=== PATIENT | male | born 1945 | race Caucasian/White ===

== ENCOUNTER 2024-05-11 07:59 | Inpatient (IN) | payer MEDICARE, OTHER, SELFPAY ==
[2024-05-11] VITALS (13 sets, daily range): BP systolic 95–135; BP diastolic 40–56; PULSE 75–100; RESP 11–19; TEMP 36.2–36.9; O2SAT 94–99; BMI 23.5
--- NOTE | 2024-05-11 08:25 | DI.RAD.S_ITS ---
PROCEDURE: XR CHEST 1V INDICATIONS: chest pain TECHNIQUE: One view of the chest was acquired. COMPARISON: [facility], , CHEST 1 VIEW, 05/10/2015, 20:03. FINDINGS: Surgical changes and devices: None. Lungs and pleura: Lungs are clear. No pleural effusions or pneumothorax. Mediastinum: Mediastinal contours appear normal. Heart size is normal. Bones and chest wall: No suspicious bony lesions. Overlying soft tissues appear unremarkable. IMPRESSION: No acute cardiopulmonary abnormality is seen. Dictated by: Jose Castle M.D. on 05/11/2024 at 8:59 Approved by: Jose Castle M.D. on 05/11/2024 at 8:59
--- NOTE | 2024-05-11 08:47 | ED_ITS ---
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 He notes that overnight he threw up what looks like blood. He brings in his sample it appears to be dark brown and watery. Patient states that happened 4 or 5 times in quick succession around 530 this morning and no additional. Patient states after he threw up he went to stand up to urinate or try to. Had a syncopal episode falling between the toilet in the wall. Patient states he thinks he was out for just a short period of time. He was able to scoot himself back. He did hit his head he has a small abrasion. He denies any neck pain. He denies any chest pain or shortness of breath. Has not had any additional syncopal episodes. He notes he has chronic back pain that has been present for several months. He was having nausea earlier and vomiting but states he has not nauseated currently. Patient has not had any fevers or chills. His states he looks unwell today but she states he will look like that on and off over the past 6 months. He is on an aspirin 81 mg daily, he is on maintenance therapy for CML, he is on 2 antihypertensive, statin. He states prior appendectomy, had a prior right colectomy for polyps. No prior cardiac interventions. He has never had any known GI bleeds. Denies any drug allergies. No tobacco, alcohol or recreational drugs. Primary care physician is Dr. Pascal, follows with oncology at [facility]. Related Data Home Medications Medication Instructions Recorded Confirmed multivitamin (Multiple Vitamins 1 tab PO QDAY #0 tabs 08/21/16 05/11/24 tablet) acetaminophen 325 mg tablet 650 mg PO Q6-8H PRN Pain (Scale 09/18/16 05/11/24 Score 4-6) ##0 amlodipine 10 mg tablet 10 mg PO DAILY 05/11/24 05/11/24 levothyroxine 100 mcg tablet 100 mcg PO DAILY 05/11/24 05/11/24 (Synthroid) lisinopril 20 mg tablet 20 mg PO BID 05/11/24 05/11/24 meloxicam 15 mg tablet 15 mg PO DAILY 05/11/24 05/11/24 pravastatin 40 mg tablet 40 mg PO DAILY 05/11/24 05/11/24 sertraline 50 mg tablet 50 mg PO DAILY 05/11/24 05/11/24 Previous Rx's Medication Instructions Recorded ponatinib 15 mg tablet (Iclusig) 15 mg PO DAILY #30 tabs 02/13/17 Allergies Allergy/AdvReac Type Severity Reaction Status Date / Time No Known Drug Allergies Allergy Verified 05/11/24 08:24 Review of Systems Review of Systems ROS Unobtainable: All systems reviewed & are unremarkable except as noted in HPI and below Patient History Social History household members: spouse Smoking Status: Never smoker alcohol intake: current Smoking Status: Never smoker Substance Use Type: does not use Exam Narrative Exam Narrative: GEN: Patient appears in mild distress. HEAD: Patient has a small abrasion and ecchymosis at the right congregational, no raccoon/Menezes sign. NECK: Nontender, painless range of motion, trachea midline Negative Nexus criteria, no midline line tenderness, distracting injury, altered mental status, neuro deficit, recent EtOH. EYES: PERRLA, EOMI ENT: External inspection normal, trachea is midline, Nares are clear, no septal hematoma, no dental or oral injury, airway is normal and with normal occlusion RESP: Chest is nontender and has symmetric movement, no ecchymosis, breath sounds are normal no crackles, wheezes or rales CVS: Heart sounds are normal, no murmur noted, No JVD. ABG/GI: Nontender, soft, nondistended, normal bowel sounds, no distention, no organomegaly, pelvic rock is negative NEURO: Oriented AOx3, neuro is grossly intact, sensation and motor is normal all 4 extremities moving, cranial nerves II through XII are intact, GCS is 15 PSYCH: Normal mood and affect SKIN: Intact, warm and dry, no crepitus and without decubitus BACK: No CVA tenderness, no vertebral tenderness, no step-off's, no crepitus EXT: Atraumatic, hips are nontender, no pedal edema, normal range of motion. No edema bilateral lower extremities. 2+ pulses upper and lower extremities. Initial Vital Signs Initial Vital Signs: Vital Signs Blood Pressure 111/55 L 05/11/24 08:00 Course Orders Ordered: Acetaminophen (Acetaminophen 325 Mg Tablet) 650 mg PO Q6H PRN PRN Reason: Fever/Mild Pain (1-3) Sodium Chloride (Normal Saline 0.9%) 1,000 mls @ 100 mls/hr IV CONT [facility] Last Admin: 05/12/24 06:57 Dose: 100 mls/hr Documented By: BENJAMIN Naloxone HCl (Naloxone 0.4 Mg/Ml Vial) 0.2 mg IV Q2MIN PRN PRN Reason: Opiate Reversal Ondansetron HCl (Ondansetron 4 Mg/2 Ml Inj) 4 mg IV NOW PRN PRN Reason: Nausea And Vomiting Ondansetron HCl (Ondansetron 4 Mg/2 Ml Inj) 4 mg IV Q8HR PRN PRN Reason: Nausea And Vomiting Pantoprazole Sodium (Pantoprazole 40 Mg Vial) 40 mg IV 0600,2100 [facility] Last Admin: 05/12/24 05:19 Dose: 40 mg Documented By: Admin: 05/11/24 20:59 Dose: 40 mg Documented By: TLS Discontinued Medications Aspirin (Aspirin 81 Mg Chew Tab) 324 mg PO NOW ONE Stop: 05/11/24 08:25 Last Admin: 05/11/24 09:26 Dose: Not Given Documented By: RB Bisacodyl (Bisacodyl 10 Mg Supp) 10 mg KY NOW ONE Stop: 05/11/24 15:05 Last Admin: 05/11/24 16:14 Dose: 10 mg Documented By: MM Sodium Chloride (Normal Saline 0.9%) 1,000 mls @ 250 mls/hr IV CONT [facility] Last Admin: 05/11/24 09:54 Dose: 250 mls/hr Documented By: RB Dextrose/Sodium Chloride (Dextrose 5%-0.45% Ns) 1,000 mls @ 100 mls/hr IV CONT [facility] Last Admin: 05/11/24 15:26 Dose: Not Given Documented By: MM Sodium Chloride (Normal Saline 0.9%) 1,000 mls @ 100 mls/hr IV CONT [facility] Last Admin: 05/11/24 14:33 Dose: 100 mls/hr Documented By: TLS Sodium Chloride (Normal Saline 0.9%) 1,000 mls @ 100 mls/hr IV CONT [facility] Last Admin: 05/11/24 16:14 Dose: Not Given Documented By: MM Sodium Chloride (Normal Saline 0.9%) 1,000 mls @ 150 mls/hr IV CONT [facility] Last Admin: 05/12/24 05:17 Dose: 200 mls/hr Documented By: Infusion: 05/12/24 05:17 Dose: Infused Documented By: Infusion: 05/12/24 02:20 Dose: 200 mls/hr Documented By: Admin: 05/11/24 23:44 Dose: 150 mls/hr Documented By: BENJAMIN Lidocaine HCl (Lidocaine 2% (Glydo) 6 Ml Gel) 6 ml TOP NOW ONE Stop: 05/11/24 08:29 Last Admin: 05/11/24 09:07 Dose: 6 ml Documented By: EDUARDO Ondansetron HCl (Ondansetron 4 Mg Odt) 4 mg SL NOW PRN PRN Reason: Nausea And Vomiting Pantoprazole Sodium (Pantoprazole 40 Mg Vial) 80 mg IV NOW ONE Stop: 05/11/24 08:41 Last Admin: 05/11/24 09:53 Dose: 80 mg Documented By: EDUARDO Vital Signs Vital signs: Vital Signs - 8 hr 05/11/24 08:00 05/11/24 08:14 05/11/24 09:00 Temperature 98.4 F Pulse Rate 86 92 H Respiratory Rate 18 19 Blood Pressure 111/55 L 111/55 L 101/55 L Pulse Oximetry 99 98 Oxygen Delivery Method Room Air Room Air 05/11/24 09:30 05/11/24 10:00 05/11/24 10:30 Temperature Pulse Rate 77 79 80 Respiratory Rate 12 11 L Blood Pressure 95/50 L 100/54 L Pulse Oximetry 97 98 99 Oxygen Delivery Method Room Air Room Air 05/11/24 10:59 05/11/24 11:00 05/11/24 11:30 Temperature Pulse Rate 75 77 77 Respiratory Rate 15 13 Blood Pressure 100/54 L 101/55 L 108/54 L Pulse Oximetry 96 98 Oxygen Delivery Method Room Air Room Air Medical Decision Making Lab Data 05/12/24 05:55 05/12/24 05:55 Labs: Lab Results 05/11/24 05/11/24 Range/Units 08:55 09:15 WBC 20.2 H (4.5-11.0) X10^3/uL RBC 3.33 L (4.5-5.9) X10^6/uL Hgb 10.7 L (13.5-17.5) g/dL Hct 30.7 L (41-53) % MCV 92.3 (80-100) fL MCH 32.2 (26-34) PG MCHC 34.9 (30-36) % RDW 13.7 (11.6-14.8) % Plt Count 263 (150-400) X10^3/uL Neut % (Auto) 87.9 H (50-75) % Lymph % (Auto) 3.4 L (25-40) % [place] % (Auto) 8.1 (3-14) % Eos % (Auto) 0.1 L (2-4) % Baso % (Auto) 0.5 (0-2) % Neut # (Auto) 12987 H (9313-4635) /uL Lymph # (Auto) 700 L (2391-6347) /uL [place] # (Auto) 1600 H (0-900) /uL Eos # (Auto) 0 (0-450) /uL Baso # (Auto) 100 (0-100) /uL PT 12.2 (9.4-12.5) SECONDS INR 1.1 (0.9-1.3) APTT 29 (25.1-36.5) SECONDS Sodium 125 L (137-145) mmol/L Potassium 4.9 (3.4-5.1) mmol/L Chloride 95 L (98-107) mmol/L Carbon Dioxide 22 (22-32) mmol/L BUN 51 H (9-20) mg/dL Creatinine 1.46 H (0.66-1.25) mg/dL Estimated GFR 48 L (>60) mL/min BUN/Creatinine Ratio 34.9 H (6-22) Glucose 129 H (80-110) mg/dL Lactate 1.0 (0.7-2.1) mmol/L Calcium 8.4 (8.4-10.2) mg/dL Magnesium 2.0 (1.6-2.3) mg/dL Total Bilirubin 0.6 (0.2-1.3) mg/dL AST 27 (17-59) IU/L ALT 17 (<50) IU/L Alkaline Phosphatase 66 (38-126) U/L Total Creatine Kinase 146 (55-170) U/L Troponin I < 0.012 (0.01-0.034) ng/mL Total Protein 6.2 L (6.3-8.2) g/dL Albumin 3.8 (3.5-5.0) g/dL Globulin 2.4 (1.7-4.1) g/dL Albumin/Globulin Ratio 1.6 (1.0-2.8) Lipase 63 (23-300) U/L Procalcitonin 0.105 (<0.5) ng/mL Urine Color Yellow Urine Appearance Clear Urine pH 5.5 (4.5-8.0) Ur Specific [place] 1.015 (1.000-1.035) Urine Protein Negative (Negative) Urine Glucose (UA) Negative (Negative) g/dL Urine Ketones 1+ H (NEGATIVE) Urine Occult Blood Trace-intact (Negative) Urine Nitrate Negative (Negative) Urine Bilirubin 1+ H (NEGATIVE) Ur Bilirubin Confirm Negative (Negative) Urine Urobilinogen 0.2 (0.2) E.U./dL Ur Leukocyte Esterase Negative (NEGATIVE) Urine RBC None seen (0-5/HPF) Urine WBC None seen (0-5/HPF) Ur Squamous Epith Cells None seen (0-5/HPF) Urine Bacteria None seen (None) Ur Culture Indicated? Cult not indicated Vol Urine Centrifuged 10ml (spun) Blood Type O Positive Antibody Screen Negative ECG Data Attestation: I personally reviewed and interpreted this ECG as follows: Interpretation: Sinus rhythm rate 86 [place] 204 QRS 84 QTC 435. No acute ST changes appreciated. Nonspecific change. [facility] Narrative Medical decision making narrative: 79-year-old male with complaint of no bowel movement, vomiting and inability to urinate. Patient notes he thinks he vomited up some blood it does look very dark brown. He had a syncopal episode thereafter. He is slightly hypotensive. Labs show white count of 20, hemoglobin of 10 patient has priors are from over 4 years ago, patient's platelets are 263. INR is 1.1. Sodium is 125 potassium of 4.9 chloride 95 CO2 of 22, BUN 51 with a creatinine 1.46, glucose is 129, LFTs are negative troponins less than 0.012, lactate is 1, procalcitonin is 0.015, blood cultures are pending. Urinalysis shows 1+ ketones 1+ bilirubin no other signs of infection. Chest x-ray shows no acute change. Head CT no acute intracranial hemorrhage or pathology. CT C-spine no fracture or traumatic subluxation focal C5-6 degenerative change. Also focal degenerative change at C1-C2 anteriorly. CT abdomen pelvis shows volume of stool in the colon is not effective, Villarreal catheter is in place. Right partial colectomy changes can be seen. Diverticulosis without diverticulitis. Patient received gentle fluids, Protonix and Zofran. Villarreal catheter was placed patient had about 350 mL on bladder scan. Spoke with Dr. Luque, general surgery: Plan to keep patient NPO, we will see patient today. Possible scope today versus tomorrow. Dr. Cheng, hospitalist accepts for inpatient. Discharge Plan Departure Patient Disposition: Admitted As Inpatient Clinical Impression: Acute GI bleeding, NAV (acute kidney injury), Hyponatremia Admit Date/Time: 05/11/24 12:45 Admit Provider: Fabian Cheng
--- NOTE | 2024-05-11 09:06 | DI.CT.S_ITS ---
PROCEDURE: CT ABDOMEN PELVIS W CON INDICATIONS: vomiting ? blood, no BM x 2 days, can't urinate, TECHNIQUE: After the administration of intravenous contrast, axial sections acquired from the lung bases to the pubic symphysis. Coronal and sagittal reformats were performed. For radiation dose reduction, the following was used: automated exposure control, adjustment of mA and/or kV according to patient size. COMPARISON: [facility], CT, CT HEAD/BRAIN WO CON, 05/11/2024, 10:12. [facility], CT, CT CERVICAL SPINE WO CON, 05/11/2024, 10:12. FINDINGS: Image quality: Diagnostic. Lower Chest: Dense coronary calcification can be seen. ABDOMEN: Liver: No solid mass. Gallbladder: No radiopaque gallstones or wall thickening. Biliary ducts: No biliary dilation. Pancreas: No ductal dilation. Spleen: Size is within normal limits. Adrenal Glands: No adrenal nodules. Kidneys and Ureters: No hydronephrosis. No solid mass. No complex renal cystic lesion which requires follow up. Stomach and Bowel: Right partial colectomy change can be seen. Distal colonic diverticulosis is seen, without findings of active diverticulitis. The colon is otherwise unremarkable. The volume of stool within the colon is not excessive. No dilated loops of small bowel are seen. The stomach demonstrates no significant abnormality. Peritoneum: No abnormal intraperitoneal fluid. No free air. Ventral Wall: No significant ventral hernia. Abdominal Nodes: No retroperitoneal or mesenteric adenopathy by size criteria. Vessels: Aorta and inferior vena cava are normal in size. Atherosclerotic calcification is noted. PELVIS: Pelvic Organs: Fluoroscopic images were obtained during a procedure and submitted for interpretation following the completion of the procedure. Bladder: No bladder wall thickening, accounting for underdistention. Pelvic Nodes: No enlarged lymph nodes. Miscellaneous: Bilateral fat containing inguinal hernias are seen, left larger than right. Bones: No aggressive osseous abnormality. Mild levoconvex scoliotic curvature is noted. Age-appropriate bony degenerative changes are seen. IMPRESSION: No imaging explanation is found for this patient's presenting symptoms. The volume of stool within the colon is not excessive. A Villarreal catheter is seen in place. Additional findings: Dense coronary artery calcification Diverticulosis, without active diverticulitis Bilateral fat containing inguinal hernias Dictated by: Yobani Gresham M.D. on 05/11/2024 at 9:32 Approved by: Yobani Gresham M.D. on 05/11/2024 at 9:35
[2024-05-11] MEDS: LIDOCAINE 2% (GLYDO) 6 ML GEL TOP (09:07)
--- NOTE | 2024-05-11 09:08 | DI.CT.S_ITS ---
PROCEDURE: CT HEAD/BRAIN WO CON INDICATIONS: syncope, hit head on thinners, TECHNIQUE: Noncontrast 4.5 mm thick angled axial sections acquired from the foramen magnum to the vertex, with coronal and sagittal reformats. For radiation dose reduction, the following was used: automated exposure control, adjustment of mA and/or kV according to patient size. COMPARISON: [facility], CT, CT CERVICAL SPINE WO CON, 05/11/2024, 10:12. [facility], CT, CT ABDOMEN PELVIS W CON, 05/11/2024, 10:12. FINDINGS: Image quality: Diagnostic. CSF spaces: Basal cisterns are patent. No extra-axial fluid collections. The ventricles are symmetric in size and shape. Brain: No intracranial bleeds or masses. There is cerebral volume loss for age, with resultant ventricular and sulcal prominence. There are periventricular and deep white matter chronic small vessel ischemic changes. There is intracranial internal carotid artery atherosclerosis. Skull and face: Calvarium and visualized facial bones appear intact, without suspicious lesions. Sinuses: Visualized sinuses and mastoids are clear. IMPRESSION: No acute intracranial hemorrhage is seen. No acute intracranial pathology. Dictated by: Yobani Gresham M.D. on 05/11/2024 at 9:25 Approved by: Yobani Gresham M.D. on 05/11/2024 at 9:26
--- NOTE | 2024-05-11 09:08 | DI.CT.S_ITS ---
PROCEDURE: CT CERVICAL SPINE WO CON INDICATIONS: syncope, hit head on thinners, TECHNIQUE: Noncontrast 3 mm thick sections acquired from the skull base to the T4 level. Sagittal and coronal reformats were then constructed. For radiation dose reduction, the following was used: automated exposure control, adjustment of mA and/or kV according to patient size. COMPARISON: [facility], CT, CT ABDOMEN PELVIS W CON, 05/11/2024, 10:12. [facility], CT, CT HEAD/BRAIN WO CON, 05/11/2024, 10:12. FINDINGS: Image quality: Diagnostic Bones: No fractures or dislocations. Visualized superior ribs are intact. Focal degenerative change is seen involving the C1-C2 interface anteriorly. There is at least moderate disc space narrowing seen at the C5-C6 level. Milder degenerative changes are seen elsewhere. Soft tissues: Prevertebral soft tissues are normal in thickness. No paravertebral hematomas. No apical pneumothoraces. Atherosclerotic calcification is noted. IMPRESSION: No displaced fracture or traumatic subluxation. Focal C5-C6 degenerative change. Dictated by: Yobani Gresham M.D. on 05/11/2024 at 9:26 Approved by: Yobani Gresham M.D. on 05/11/2024 at 9:27
[2024-05-11 09:09] LABS: Add Manual Diff / Slide Review NO; Basophils Absolute Auto 100 /uL (0-100); Basophils Percent Auto 0.5 % (0-2); Eosinophils Absolute Auto 0 /uL (0-450); Eosinophils Percent Auto 0.1 % (2-4); Hematocrit 30.7 % (41-53); Hemoglobin 10.7 g/dL (13.5-17.5); Lymphocytes Absolute Auto 700 /uL (1100-4500); Lymphocytes Percent Auto 3.4 % (25-40); Mean Corpuscular HGB Conc 34.9 % (30-36); Mean Corpuscular Hemoglobin 32.2 PG (26-34); Mean Corpuscular Volume 92.3 fL (80-100); Monocytes Absolute Auto 1600 /uL (0-900); Monocytes Percent Auto 8.1 % (3-14); Neutrophils Absolute Auto 17700 /uL (1500-7000); Neutrophils Percent Auto 87.9 % (50-75); Platelet Count 263 X10^3/uL (150-400); Red Blood Cell Count 3.33 X10^6/uL (4.5-5.9); Red Cell Distribution Width 13.7 % (11.6-14.8); White Blood Cell Count 20.2 X10^3/uL (4.5-11.0)
[2024-05-11 09:17] LABS: INR 1.1 (0.9-1.3); Prothrombin Time 12.2 SECONDS (9.4-12.5)
[2024-05-11 09:20] LABS: PTT Partial Thromboplastin Tim 29 SECONDS (25.1-36.5)
[2024-05-11 09:22] LABS: Alanine Aminotransferase 17 IU/L (<50); Albumin 3.8 g/dL (3.5-5.0); Albumin Globulin Ratio 1.6 (1.0-2.8); Alkaline Phosphatase 66 U/L (38-126); Aspartate Aminotransferase 27 IU/L (17-59); BUN Creatinine Ratio 34.9 (6-22); Bilirubin Total 0.6 mg/dL (0.2-1.3); Blood Urea Nitrogen 51 mg/dL (9-20); Calcium 8.4 mg/dL (8.4-10.2); Carbon Dioxide 22 mmol/L (22-32); Chloride 95 mmol/L (98-107); Creatine Kinase 146 U/L (55-170); Estimated Glomerular Filt Rate 48 mL/min (>60); Globulin 2.4 g/dL (1.7-4.1); Glucose 129 mg/dL (80-110); HEMOLYSIS < 15 (0-50); Lipase 63 U/L (23-300); Potassium 4.9 mmol/L (3.4-5.1); Sodium 125 mmol/L (137-145); Total Protein 6.2 g/dL (6.3-8.2)
[2024-05-11 09:33] LABS: Troponin I < 0.012 ng/mL (0.01-0.034)
[2024-05-11 09:34] LABS: Appearance Urine UA CLEAR; Bilirubin Urine UA 1+ (NEGATIVE); Color Urine UA YELLOW; Glucose Urine UA NEGATIVE (Negative); Ketones Urine UA 1+ (NEGATIVE); Leukocyte Esterase Urine UA NEGATIVE (NEGATIVE); Nitrite Urine UA NEGATIVE (Negative); Occult Blood Urine UA TRACE-INTACT (Negative); Protein Urine UA NEGATIVE (Negative); Specific Gravity Urine UA 1.015 (1.000-1.035); Urobilinogen Urine UA 0.2 E.U./dL (0.2); pH Urine UA 5.5 (4.5-8.0)
[2024-05-11 09:36] LABS: Ictotest Urine Negative (Negative); Urine Volume 10mL (spun)
[2024-05-11 09:38] LABS: Bacteria Urine None Seen; Culture Indicated Urine Cult Not Indicated; RBC Urine None Seen (0-5/HPF); Squamous Epithelial Cell Urine None Seen (0-5/HPF); WBC Urine None Seen (0-5/HPF)
[2024-05-11] MEDS: PANTOPRAZOLE 40 MG VIAL 80 MG IV (09:53)
[2024-05-11] MEDS: SODIUM CHLORIDE 0.9% 1,000 ML 250 ML IV (09:54)
[2024-05-11 10:31] LABS: Procalcitonin 0.105 ng/mL (<0.5)
--- NOTE | 2024-05-11 13:37 | P.HP_ITS ---
History of Present Illness History of Present Illness Date Patient Seen: 05/11/24 Time Patient Seen: 04:00 Chief complaint: Blood in Vomit Narrative: The patient is an 79-year-old male with a history of CML, hypertension, and right colectomy for a polyp. He was having abdominal pain for about a day and had a very large volume vomiting episodes this morning with dark green and possibly coffee-ground emesis. He has chronic constipation with no BM for about 2 days. He denies any abdominal distention. He did have urinary retention and required a Villarreal in the ED. He has a history of nocturia but no history of retention. He only had 300 mL out when the Villarreal was placed. He notes a long history of chronic constipation with a lot of obsessing for about 6 months. He has tried a variety of remedies but does not have a routine. He is also lost about 25 lb but it sounds like he was eating less in the way of avoiding constipation. He also has chronic lower back pain without any clear cause and has not had imaging that I can tell. In the emergency department he did have a CT scan which was fairly unremarkable. He takes 2 aspirin a day but denies any nonsteroidals. He has no history of POD or GI bleeds. He is and lives with his . Extended family is currently living with them. It sounds as though he spends majority of his time concentrating on the problem of constipation and possible ways to fix it. He was recently started on Zoloft by his primary care doctor. Surgery was consulted from the emergency department for endoscopy. He was started on Protonix. [facility] Social History household members: spouse Smoking Status: Never smoker alcohol intake: current Meds Home Medications and Allergies Home Medications Medication Instructions Recorded Confirmed Type multivitamin (Multiple Vitamins 1 tab PO QDAY #0 tabs 08/21/16 05/11/24 History tablet) acetaminophen 325 mg tablet 650 mg PO Q6-8H PRN Pain (Scale 09/18/16 05/11/24 History Score 4-6) ##0 ponatinib 15 mg tablet (Iclusig) 15 mg PO DAILY #30 tabs 02/13/17 05/11/24 Rx amlodipine 10 mg tablet 10 mg PO DAILY 05/11/24 05/11/24 History levothyroxine 100 mcg tablet 100 mcg PO DAILY 05/11/24 05/11/24 History (Synthroid) lisinopril 20 mg tablet 20 mg PO BID 05/11/24 05/11/24 History meloxicam 15 mg tablet 15 mg PO DAILY 05/11/24 05/11/24 History pravastatin 40 mg tablet 40 mg PO DAILY 05/11/24 05/11/24 History sertraline 50 mg tablet 50 mg PO DAILY 05/11/24 05/11/24 History Allergies Allergy/AdvReac Type Severity Reaction Status Date / Time No Known Drug Allergies Allergy Verified 05/11/24 08:24 Review of Systems Review of Systems Narrative: All else reviewed and otherwise unremarkable except as noted in the history and physical. Exam Vital Signs (past 8 hours): - 05/11/24 08:00 05/11/24 08:14 05/11/24 09:00 Temperature 98.4 F Pulse Rate 86 92 H Respiratory Rate 18 19 Blood Pressure 111/55 L 111/55 L 101/55 L Pulse Oximetry 99 98 Oxygen Delivery Method Room Air Room Air 05/11/24 09:30 05/11/24 10:00 05/11/24 10:30 Temperature Pulse Rate 77 79 80 Respiratory Rate 12 11 L Blood Pressure 95/50 L 100/54 L Pulse Oximetry 97 98 99 Oxygen Delivery Method Room Air Room Air 05/11/24 10:59 05/11/24 11:00 05/11/24 11:30 Temperature Pulse Rate 75 77 77 Respiratory Rate 15 13 Blood Pressure 100/54 L 101/55 L 108/54 L Pulse Oximetry 96 98 Oxygen Delivery Method Room Air Room Air 05/11/24 13:00 Temperature Pulse Rate 81 Respiratory Rate Blood Pressure 107/56 L Pulse Oximetry 99 Oxygen Delivery Method Room Air Oxygen Delivery Method Room Air Narrative Exam Narrative: NAD, alert and oriented, fluent speech, calm. Normocephalic skull, EOMI, anicteric sclera, symmetric pupils. Oropharynx unremarkable, no droop. Neck supple, midline trachea, no adenopathy. Lungs clear, normal rate and effort. Heart regular, no murmur gallop or rub. Abdomen is soft, non distended and non tender. Extremities are free of edema. Skin is free of rash or lesions. Joints are not swollen or deformed. Judgment appears to be abnormal. Objective Labs 05/11/24 08:55 05/11/24 08:55 Labs: Laboratory Results - last 24 hr 05/11/24 05/11/24 08:55 09:15 WBC 20.2 H RBC 3.33 L Hgb 10.7 L Hct 30.7 L MCV 92.3 MCH 32.2 MCHC 34.9 RDW 13.7 Plt Count 263 Neut % (Auto) 87.9 H Lymph % (Auto) 3.4 L [place] % (Auto) 8.1 Eos % (Auto) 0.1 L Baso % (Auto) 0.5 Neut # (Auto) 80721 H Lymph # (Auto) 700 L [place] # (Auto) 1600 H Eos # (Auto) 0 Baso # (Auto) 100 PT 12.2 INR 1.1 APTT 29 Sodium 125 L Potassium 4.9 Chloride 95 L Carbon Dioxide 22 BUN 51 H Creatinine 1.46 H Estimated GFR 48 L BUN/Creatinine Ratio 34.9 H Glucose 129 H Lactate 1.0 Calcium 8.4 Magnesium 2.0 Total Bilirubin 0.6 AST 27 ALT 17 Alkaline Phosphatase 66 Total Creatine Kinase 146 Troponin I < 0.012 Total Protein 6.2 L Albumin 3.8 Globulin 2.4 Albumin/Globulin Ratio 1.6 Lipase 63 Procalcitonin 0.105 Urine Color Yellow Urine Appearance Clear Urine pH 5.5 Ur Specific [place] 1.015 Urine Protein Negative Urine Glucose (UA) Negative Urine Ketones 1+ H Urine Occult Blood Trace-intact Urine Nitrate Negative Urine Bilirubin 1+ H Ur Bilirubin Confirm Negative Urine Urobilinogen 0.2 Ur Leukocyte Esterase Negative Urine RBC None seen Urine WBC None seen Ur Squamous Epith Cells None seen Urine Bacteria None seen Ur Culture Indicated? Cult not indicated Vol Urine Centrifuged 10ml (spun) Blood Type O Positive Antibody Screen Negative Assessment & Plan Assessment & Plan narrative: 1. Possible hematemesis, present on admission and active. 2. Acute on chronic constipation, present on admission and active. 3. Hypovolemic hyponatremia, present on admission and active. 4. CML, present on admission and stable. 5. Chronic lower back pain, present on admission and stable. 6. 25 lb weight loss over the last year, not clearly unintentional. Stable. 7. Hypertension, present on admission and stable. Plan: -Dulcolax suppository -saline repletion and trend sodium. We will try to correct 5 points every 24 hours. This is likely nutritional deficiency. -endoscopy tomorrow, continue Protonix IV q.12 hours. -monitor blood pressure, resume usual blood pressure medications. -resume Synthroid. He was admitted to observation, estimated 1 midnight necessity for hospital care. He lives in [place] with his . He is full resuscitation. She was his proxy decision maker. Time Spent With Patient Time with patient: 30 to 49 minutes with 50% spent counseling/coordinating care Quality MIPS - Admit I confirm the patient?s Advance Care Plan is present, Code status is documented, Surrogate decision maker is in patient?s record [If Yes, STOP here]: Yes MIPS - Meds 'Current medications' to include all prescriptions, [id number] products, herbals, cannabis/cannabidiol products, and vitamin/mineral/dietary (nutritional) supplements. I have utilized all available resources to obtain, update, or review the patient?s current medications. [If Yes, STOP here]: Yes
[2024-05-11] MEDS: SODIUM CHLORIDE 0.9% 1,000 ML 100 ML IV (14:33)
--- NOTE | 2024-05-11 15:21 | PM.CN ---
History of Present Illness Consult details Date Patient Seen: 05/11/24 Time Patient Seen: 15:21 Chief complaint: Blood in Vomit Narrative: Faheem is an 79-year-old man who presented to the emergency department this morning because syncope and emesis of dark liquid. His brought a sample of it in jar and appears to be bilious liquid. He has also been struggling with constipation for the past 6 months or so. He has not noted obvious selina blood in the stool but he thinks it has been dark. He has had a prior right hemicolectomy for polyps many years ago but stopped having surveillance colonoscopies about 5 years ago because of his age. He has CML in remission and he did see his oncologist on Saturday. His hemoglobin in the ER this morning was 10.7 which is down from a baseline of 14. Meds Home Medications and Allergies Home Medications Medication Instructions Recorded Confirmed Type multivitamin (Multiple Vitamins 1 tab PO QDAY #0 tabs 08/21/16 05/11/24 History tablet) acetaminophen 325 mg tablet 650 mg PO Q6-8H PRN Pain (Scale 09/18/16 05/11/24 History Score 4-6) ##0 ponatinib 15 mg tablet (Iclusig) 15 mg PO DAILY #30 tabs 02/13/17 05/11/24 Rx amlodipine 10 mg tablet 10 mg PO DAILY 05/11/24 05/11/24 History levothyroxine 100 mcg tablet 100 mcg PO DAILY 05/11/24 05/11/24 History (Synthroid) lisinopril 20 mg tablet 20 mg PO BID 05/11/24 05/11/24 History meloxicam 15 mg tablet 15 mg PO DAILY 05/11/24 05/11/24 History pravastatin 40 mg tablet 40 mg PO DAILY 05/11/24 05/11/24 History sertraline 50 mg tablet 50 mg PO DAILY 05/11/24 05/11/24 History Allergies Allergy/AdvReac Type Severity Reaction Status Date / Time No Known Drug Allergies Allergy Verified 05/11/24 08:24 Exam Vital Signs (past 8 hours): - 05/11/24 08:00 05/11/24 08:14 05/11/24 09:00 Temperature 98.4 F Pulse Rate 86 92 H Respiratory Rate 18 19 Blood Pressure 111/55 L 111/55 L 101/55 L Pulse Oximetry 99 98 Oxygen Delivery Method Room Air Room Air Oxygen Flow Rate 05/11/24 09:30 05/11/24 10:00 05/11/24 10:30 Temperature Pulse Rate 77 79 80 Respiratory Rate 12 11 L Blood Pressure 95/50 L 100/54 L Pulse Oximetry 97 98 99 Oxygen Delivery Method Room Air Room Air Oxygen Flow Rate 05/11/24 10:59 05/11/24 11:00 05/11/24 11:30 Temperature Pulse Rate 75 77 77 Respiratory Rate 15 13 Blood Pressure 100/54 L 101/55 L 108/54 L Pulse Oximetry 96 98 Oxygen Delivery Method Room Air Room Air Oxygen Flow Rate 05/11/24 13:00 05/11/24 14:00 Temperature 97.1 F L Pulse Rate 81 100 H Respiratory Rate 16 Blood Pressure 107/56 L 135/56 L Pulse Oximetry 99 99 Oxygen Delivery Method Room Air Oxygen Flow Rate 0 Oxygen Delivery Method Room Air Oxygen Flow Rate 0 Const General: No acute distress Resp Effort & Inspection: normal respiratory effort Objective Labs 05/11/24 08:55 05/11/24 08:55 Labs: Laboratory Results - last 24 hr 05/11/24 05/11/24 08:55 09:15 WBC 20.2 H RBC 3.33 L Hgb 10.7 L Hct 30.7 L MCV 92.3 MCH 32.2 MCHC 34.9 RDW 13.7 Plt Count 263 Neut % (Auto) 87.9 H Lymph % (Auto) 3.4 L [place] % (Auto) 8.1 Eos % (Auto) 0.1 L Baso % (Auto) 0.5 Neut # (Auto) 02988 H Lymph # (Auto) 700 L [place] # (Auto) 1600 H Eos # (Auto) 0 Baso # (Auto) 100 PT 12.2 INR 1.1 APTT 29 Sodium 125 L Potassium 4.9 Chloride 95 L Carbon Dioxide 22 BUN 51 H Creatinine 1.46 H Estimated GFR 48 L BUN/Creatinine Ratio 34.9 H Glucose 129 H Lactate 1.0 Calcium 8.4 Magnesium 2.0 Total Bilirubin 0.6 AST 27 ALT 17 Alkaline Phosphatase 66 Total Creatine Kinase 146 Troponin I < 0.012 Total Protein 6.2 L Albumin 3.8 Globulin 2.4 Albumin/Globulin Ratio 1.6 Lipase 63 Procalcitonin 0.105 Urine Color Yellow Urine Appearance Clear Urine pH 5.5 Ur Specific [place] 1.015 Urine Protein Negative Urine Glucose (UA) Negative Urine Ketones 1+ H Urine Occult Blood Trace-intact Urine Nitrate Negative Urine Bilirubin 1+ H Ur Bilirubin Confirm Negative Urine Urobilinogen 0.2 Ur Leukocyte Esterase Negative Urine RBC None seen Urine WBC None seen Ur Squamous Epith Cells None seen Urine Bacteria None seen Ur Culture Indicated? Cult not indicated Vol Urine Centrifuged 10ml (spun) Blood Type O Positive Antibody Screen Negative PFSH Social History household members: spouse Tobacco & Substance Use Smoking Status: Never smoker alcohol intake: current Assessment & Plan Assessment and plan (1) Syncope: Qualifiers: Syncope type: unspecified Qualified Code(s): R55 - Syncope and collapse Status: Acute Plan Recommend esophagogastroduodenoscopy for syncope with decreasing hemoglobin. Plan for endoscopy tomorrow pending OR availability.
[2024-05-11] MEDS: BISACODYL 10 MG SUPP PR (16:14)
[2024-05-11 18:13] LABS: Appearance Urine UA CLEAR; Bilirubin Urine UA NEGATIVE (NEGATIVE); Color Urine UA YELLOW; Glucose Urine UA NEGATIVE (Negative); Ketones Urine UA TRACE (NEGATIVE); Leukocyte Esterase Urine UA NEGATIVE (NEGATIVE); Nitrite Urine UA NEGATIVE (Negative); Occult Blood Urine UA 2+ (Negative); Protein Urine UA TRACE (Negative); Specific Gravity Urine UA <=1.005 (1.000-1.035); Urobilinogen Urine UA 0.2 E.U./dL (0.2); pH Urine UA 5.5 (4.5-8.0)
[2024-05-11 18:28] LABS: Bacteria Urine None Seen; Culture Indicated Urine Cult Not Indicated; RBC Urine 5-10/HPF (0-5/HPF); Squamous Epithelial Cell Urine 0-1 /HPF (0-5/HPF); Urine Volume 10mL (spun); WBC Urine 0-1/HPF (0-5/HPF)
[2024-05-11] MEDS: PANTOPRAZOLE 40 MG VIAL IV (20:59)
[2024-05-11 23:24] LABS: Hematocrit 26.2 % (41-53); Hemoglobin 9.3 g/dL (13.5-17.5)
[2024-05-11] MEDS: SODIUM CHLORIDE 0.9% 1,000 ML 150 ML IV (23:44)
[2024-05-12] VITALS (14 sets, daily range): BP systolic 100–137; BP diastolic 43–64; PULSE 69–88; RESP 14–18; TEMP 35.7–36.7; O2SAT 96–100
--- NOTE | 2024-05-12 00:29 | PC.NURSE ---
Addendum entered by Maddi Millan R.N. 05/12/24 06:59: NS running at 100cc/hr as ordered. Notified MD Cheng of sodium increase (125-135). Patient AxOx4, denies pain or discomfort. Addendum entered by Maddi Millan R.N. 05/12/24 02:20: Patient remains hypotensive (documented VS), patient is alert and denies dizziness. Notified MD Navarro, orders are to increase NS to 200cc/hr until 0700, then decrease back to 100cc/hr. 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 NPO for procedure tomorrow. Patient is hypotensive (documented VS), notified MD Navarro, increased NS to 150cc/hr. Villarreal in place draining clear, yellow urine. Denies pain. Fall precautions in place, oriented to call-light, plan of care ongoing.
[2024-05-12] MEDS: SODIUM CHLORIDE 0.9% 1,000 ML 200 ML IV (05:17)
[2024-05-12] MEDS: PANTOPRAZOLE 40 MG VIAL IV ×2 (05:19→20:39)
[2024-05-12 06:28] LABS: Hematocrit 25.7 % (41-53); Hemoglobin 9.2 g/dL (13.5-17.5)
[2024-05-12 06:41] LABS: BUN Creatinine Ratio 31.7 (6-22); Blood Urea Nitrogen 32 mg/dL (9-20); Calcium 7.8 mg/dL (8.4-10.2); Carbon Dioxide 19 mmol/L (22-32); Chloride 112 mmol/L (98-107); Estimated Glomerular Filt Rate > 60 mL/min (>60); Glucose 91 mg/dL (80-110); HEMOLYSIS < 15 (0-50); Potassium 4.1 mmol/L (3.4-5.1); Sodium 135 mmol/L (137-145)
[2024-05-12] MEDS: SODIUM CHLORIDE 0.9% 1,000 ML 100 ML IV ×2 (06:57→23:44)
--- NOTE | 2024-05-12 07:38 | P.PN_ITS ---
Subjective Subjective Interval history: Hungry, no abdomen pain. Large BM. Exam Vital Signs (past 8 hours): - 05/12/24 00:03 05/12/24 02:18 05/12/24 03:05 Pulse Rate 79 88 84 Respiratory Rate 17 Blood Pressure 108/46 L 107/45 L 122/56 L Pulse Oximetry 96 97 Oxygen Flow Rate 0 0 Oxygen Delivery Method Room Air Oxygen Flow Rate 0 Narrative Exam Narrative: NAD, alert and oriented. Fluent speech. Lungs are clear, normal rate and effort. Heart is regular, no murmur gallop or rub. Abdomen is soft, non distended. Extremities are free of edema. Objective Labs 05/12/24 05:55 05/12/24 05:55 Labs: Laboratory Results - last 24 hr 05/11/24 05/11/24 05/11/24 08:55 09:15 17:10 WBC 20.2 H RBC 3.33 L Hgb 10.7 L Hct 30.7 L MCV 92.3 MCH 32.2 MCHC 34.9 RDW 13.7 Plt Count 263 Neut % (Auto) 87.9 H Lymph % (Auto) 3.4 L [place] % (Auto) 8.1 Eos % (Auto) 0.1 L Baso % (Auto) 0.5 Neut # (Auto) 84492 H Lymph # (Auto) 700 L [place] # (Auto) 1600 H Eos # (Auto) 0 Baso # (Auto) 100 PT 12.2 INR 1.1 APTT 29 Sodium 125 L Potassium 4.9 Chloride 95 L Carbon Dioxide 22 BUN 51 H Creatinine 1.46 H Estimated GFR 48 L BUN/Creatinine Ratio 34.9 H Glucose 129 H Lactate 1.0 Calcium 8.4 Magnesium 2.0 Total Bilirubin 0.6 AST 27 ALT 17 Alkaline Phosphatase 66 Total Creatine Kinase 146 Troponin I < 0.012 Total Protein 6.2 L Albumin 3.8 Globulin 2.4 Albumin/Globulin Ratio 1.6 Lipase 63 Procalcitonin 0.105 Urine Color Yellow Yellow Urine Appearance Clear Clear Urine pH 5.5 5.5 Ur Specific [place] 1.015 <=1.005 Urine Protein Negative Trace H Urine Glucose (UA) Negative Negative Urine Ketones 1+ H Trace H Urine Occult Blood Trace-intact 2+ H Urine Nitrate Negative Negative Urine Bilirubin 1+ H Negative Ur Bilirubin Confirm Negative Urine Urobilinogen 0.2 0.2 Ur Leukocyte Esterase Negative Negative Urine RBC None seen 5-10/hpf H Urine WBC None seen 0-1/hpf Ur Squamous Epith Cells None seen 0-1 /hpf Urine Bacteria None seen None seen Ur Culture Indicated? Cult not indicated Cult not indicated Vol Urine Centrifuged 10ml (spun) 10ml (spun) Blood Type O Positive Antibody Screen Negative 05/11/24 05/12/24 23:13 05:55 WBC RBC Hgb 9.3 L 9.2 L Hct 26.2 L 25.7 L MCV MCH MCHC RDW Plt Count Neut % (Auto) Lymph % (Auto) [place] % (Auto) Eos % (Auto) Baso % (Auto) Neut # (Auto) Lymph # (Auto) [place] # (Auto) Eos # (Auto) Baso # (Auto) PT INR APTT Sodium 135 L D Potassium 4.1 Chloride 112 H Carbon Dioxide 19 L BUN 32 H Creatinine 1.01 Estimated GFR > 60 BUN/Creatinine Ratio 31.7 H Glucose 91 Lactate Calcium 7.8 L Magnesium Total Bilirubin AST ALT Alkaline Phosphatase Total Creatine Kinase Troponin I Total Protein Albumin Globulin Albumin/Globulin Ratio Lipase Procalcitonin Urine Color Urine Appearance Urine pH Ur Specific [place] Urine Protein Urine Glucose (UA) Urine Ketones Urine Occult Blood Urine Nitrate Urine Bilirubin Ur Bilirubin Confirm Urine Urobilinogen Ur Leukocyte Esterase Urine RBC Urine WBC Ur Squamous Epith Cells Urine Bacteria Ur Culture Indicated? Vol Urine Centrifuged Blood Type Antibody Screen [facility] Social History household members: spouse Smoking Status: Never smoker alcohol intake: current Assessment & Plan Assessment & Plan narrative: 1. Possible hematemesis, present on admission and active. 2. Acute blood loss anemia, present on admission and active. 3. Acute on chronic constipation, present on admission and active. 4. Hypovolemic hyponatremia, present on admission and active. 5. CML, present on admission and stable. 6. Chronic lower back pain, present on admission and stable. 7. 25 lb weight loss over the last year, not clearly unintentional. Stable. 8. Hypertension, present on admission and stable. Plan: -endoscopy todoay, continue Protonix IV q.12 hours. Monitor H/H. -monitor blood pressure, resume usual blood pressure medications. -continue Synthroid. He will require another midnight of hospital care to continue Protonix and monitor hemoglobin. Quality VTE Deep Vein Thrombosis/Pulmonary Embolism Present on Admission: No
[2024-05-12 08:17] LABS: Add Manual Diff / Slide Review NO; Basophils Percent Auto 0.2 % (0-2); Eosinophils Percent Auto 0.9 % (2-4); Lymphocytes Percent Auto 9.4 % (25-40); Neutrophils Absolute Auto 8200 /uL (1500-7000); Neutrophils Percent Auto 77.5 % (50-75); White Blood Cell Count 10.7 X10^3/uL (4.5-11.0)
--- NOTE | 2024-05-12 09:26 | CM.DANOTE ---
Initial DCP Assessment Visit Note Reviewed EMR and team rounds for status updates. Went to meet with pt at bedside, however he was found to be sleeping, appearing comfortable at time of visit. Pt lives independently in his own home with his in [place]. His will plan to transport him home at d/c. Payor: Medicare PCP: Esteban Mederos Pt is a 79 year-old M who presented to the ED yesterday afternoon with c/o abd. pain for the last 24-hours, unable to urinate for the last day, and no BM in 2-days. He shared that he also vomited blood overnight, and when he stood up he passed out and fell between the wall and the toilet. No injuries with this fall were incurred. In the ED he was started on IV Zofran, Protonix, and fluids. A guerra catheter was placed and pt was made NPO for a planned endoscopy, which will occur later today. Pt will likely be here 1-more night. No anticipated d/c needs are identified at this time. This DCP will continue to monitor and assist with any evolving needs prior to his d/c. Discharge Planning/Care Management CM Discharge Assessment Start: 05/12/24 09:12 Freq: Status: Active Protocol: Document 05/12/24 09:12 DPL (Rec: 05/12/24 09:22 DPL [email or web address]) Discharge Planning Assessment Assigned Data Examination Clerk KADEN Jaime Advance Directives? No History Provided By Medical Record Expected Length of Stay 2 Has Patient been admitted in last 30 No days? Prior Living Arrangements Jail Facility Household Members spouse Type of transporation used prior to Drives own vehicle admit Independent with ADL's Yes Is patient alert and oriented? Yes Comment N/A Caregiver for Another No Comment No anticipated home d/c needs at this time. Will continue to monitor. Barriers to Discharge No Discharge Plan Home Transportation Arrangement Friend Referrals Initiated None needed Review Status In Process Please Provide Date Initial DC 05/12/24 Assessment Was Performed
--- NOTE | 2024-05-12 15:34 | PM.PREOP ---
Pre-operative Note COVID-19 Result date/Date tested (Pos, Neg/Pending): 05/12/24 Interval Note History & Physical reviewed/Exam performed by Physician: Yes Changes to H&P: No H&P completed within 30 days and has changed as indicated here:: 79-year-old man on NSAIDs with GI bleed hemodynamically stable here for upper endoscopy. Risks benefits alternatives reviewed. He provides his consent to proceed.
[2024-05-12] MEDS: LACTATED RINGERS 1,000 ML 42 ML IV (15:38)
--- NOTE | 2024-05-12 15:53 | PM.OP.EGD ---
Operative Date/Time/Diagnoses Date of procedure: 05/12/24 Time of procedure: 15:57 Pre-op diagnosis: GI bleed Post-op diagnosis: other (Gastritis) Procedure & Clinicians Study performed: Esophagogastroduodenoscopy Same procedure as scheduled: Yes Indications: 79-year-old male on NSAIDs with GI bleed Surgeon: Brando Mares Procedure Notes Procedure in detail: The history and physical was performed/updated and the patient is ASA class is 3. The procedure was discussed in detail with the patient. Potential risks complications including infection, bleeding, missed diagnosis, perforation, need for surgery, and were explained. Their questions were answered and informed consent was obtained. Patient placed in left lateral decubitus position. Time out was performed. Procedural sedation was administered by Anesthesia. A bite block was placed. the scope was inserted into the mouth and advanced through the esophagus and into the stomach. The pylorus was intubated and the duodenum was examined to the 2nd portion. The scope was then withdrawn into the stomach and was retroflexed. The stomach was decompressed and scope was withdrawn slowly through the esophagus. FINDINGS -mild gastritis of the distal gastric body. No distinct ulceration. No active hemorrhage. -normal duodenum The patient tolerated the procedure well and will be discharged when they meet criteria. Specimen(s): none sent Impression: Resolving gastritis Post-procedure Plan for aftercare: Hold meloxicam continue PPI Disposition: Acute Care
[2024-05-13] VITALS: BP 128/64; PULSE 90; RESP 18; TEMP 36.3; O2SAT 98
--- NOTE | 2024-05-13 01:46 | PC.NURSE ---
Patient is alert and oriented. Wears bilateral hearing aids due to hearing loss. Breath sounds CTA with RA sat of 98%. HRR. Denied nausea. BT present but not passed flatus since EGD done. Has indwelling catheter related to urinary retention and urine is clear, light yellow. Is able to turn himself in bed. Gait not assessed but reportedly is getting out of bed with SBA. Was wearing bilateral calf SCD's but requested they be removed for the night as they make it difficult to sleep. Reports chronic back pain at 3/10 severity but declined pain medication. Fall risk score is high and bed alarm is activated.
[2024-05-13] MEDS: LEVOTHYROXINE 100 MCG TABLET PO (05:48)
[2024-05-13] MEDS: PANTOPRAZOLE 40 MG VIAL IV (05:48)
[2024-05-13 06:01] VITALS: BP 122/59; PULSE 78; RESP 17; TEMP 36.1; O2SAT 97
[2024-05-13 07:04] LABS: BUN Creatinine Ratio 21.5 (6-22); Blood Urea Nitrogen 17 mg/dL (9-20); Calcium 7.7 mg/dL (8.4-10.2); Carbon Dioxide 22 mmol/L (22-32); Chloride 111 mmol/L (98-107); Estimated Glomerular Filt Rate > 60 mL/min (>60); Glucose 93 mg/dL (80-110); HEMOLYSIS < 15 (0-50); Potassium 4.4 mmol/L (3.4-5.1); Sodium 135 mmol/L (137-145)
[2024-05-13 08:54] LABS: Reticulocyte Count, Percent 0.8 % (0.9-2.6)
[2024-05-13 08:56] LABS: HEMOLYSIS < 15 (0-50); Iron 64 ug/dL (49-181)
[2024-05-13 09:07] LABS: Percent Iron Saturation 33 % (20-50); Total Iron Binding Capacity 193 ug/dL (261-462); Transferrin 121 mg/dL (206-381)
--- NOTE | 2024-05-13 09:28 | PM.DS.1 ---
History of Present Illness History of Present Illness Chief complaint: Blood in Vomit Narrative: The patient is an 79-year-old male with a history of CML, hypertension, and right colectomy for a polyp. He was having abdominal pain for about a day and had a very large volume vomiting episodes this morning with dark green and possibly coffee-ground emesis. He has chronic constipation with no BM for about 2 days. He denies any abdominal distention. He did have urinary retention and required a Villarreal in the ED. He has a history of nocturia but no history of retention. He only had 300 mL out when the Villarreal was placed. He notes a long history of chronic constipation with a lot of obsessing for about 6 months. He has tried a variety of remedies but does not have a routine. He is also lost about 25 lb but it sounds like he was eating less in the way of avoiding constipation. He also has chronic lower back pain without any clear cause and has not had imaging that I can tell. In the emergency department he did have a CT scan which was fairly unremarkable. He takes 2 aspirin a day but denies any nonsteroidals. He has no history of POD or GI bleeds. He is and lives with his . Extended family is currently living with them. It sounds as though he spends majority of his time concentrating on the problem of constipation and possible ways to fix it. He was recently started on Zoloft by his primary care doctor. Surgery was consulted from the emergency department for endoscopy. He was started on Protonix. Discharge Providers Provider Date of admission: 05/11/24 12:45 Discharge Date: 05/13/24 Primary care physician: Esteban Mederos MD Consults: 05/11/24 14:13 Consult to General Surgery Routine Comment: Consulting Provider: Nicolás Luque Reason for consultation: UG bleed Has provider been notified: Yes Discharge provider: Fabian Cheng MD Summary Hospital Course Discharge Diagnosis: 1. Possible hematemesis, present on admission and resolved. 2. Anemia, present on admission and active. 3. Acute on chronic constipation, present on admission and active. 4. Hypovolemic hyponatremia, present on admission and active. 5. CML, present on admission and stable. 6. Chronic lower back pain, present on admission and stable. 7. 25 lb weight loss over the last year, not clearly unintentional. Stable. 8. Hypertension, present on admission and stable. 9. Gastritis on EGD 10. BPH, present on admission and active. Hospital Course: He was admitted with a large volume emesis which was dark green and there is a question of coffee-ground. He was also mildly anemic. He underwent EGD revealing only gastritis. He does have a long history of constipation and was given Dulcolax with good results. The patient had anemia labs sent off on the day of discharge which can be followed up with his primary. He was started on Zoloft per his primary. He did have some possible retention issues which resulted in him having a Villarreal placed in the emergency department. This was removed after Flomax was given and he will be sent out on Flomax with recommendation to see Urology as well. Status at Discharge Cognitive/behavioral status at discharge: oriented Functional status at discharge: independent ambulation Overall status at discharge: patient is back to baseline Time Spent with Patient Time spent: Greater than 30 minutes Exam Vital Signs (past 8 hours): - 05/13/24 06:01 Temperature 96.9 F L Pulse Rate 78 Respiratory Rate 17 Blood Pressure 122/59 L Pulse Oximetry 97 Oxygen Flow Rate 0 Oxygen Delivery Method Room Air Oxygen Flow Rate 0 Narrative Exam Narrative: NAD, alert and oriented. Fluent speech. Lungs are clear, normal rate and effort. Heart is regular, no murmur gallop or rub. Abdomen is soft, non distended. Extremities are free of edema. Objective Imaging Multiple studies:: Radiologist's impression: Head CT: No acute intracranial hemorrhage is seen. No acute intracranial pathology. C-spine CT: No displaced fracture or traumatic subluxation. Focal C5-C6 degenerative change. Abd pelvis CT: No imaging explanation is found for this patient's presenting symptoms. The volume of stool within the colon is not excessive. A Villarreal catheter is seen in place. CXR: No acute cardiopulmonary abnormality is seen. Labs 05/12/24 05:55 05/13/24 06:25 Labs: Laboratory Results - last 24 hr 05/13/24 06:25 Percent Retic 0.8 L Sodium 135 L Potassium 4.4 Chloride 111 H Carbon Dioxide 22 BUN 17 Creatinine 0.79 Estimated GFR > 60 BUN/Creatinine Ratio 21.5 Glucose 93 Calcium 7.7 L Iron 64 TIBC 193 L % Saturation 33 Transferrin 121 L PFSH Social History household members: spouse Smoking Status: Never smoker alcohol intake: current Discharge Assessment & Plan Assessment and Plan Assessment: 1. Possible hematemesis, present on admission and resolved. 2. Anemia, present on admission and active. 3. Acute on chronic constipation, present on admission and active. 4. Hypovolemic hyponatremia, present on admission and active. 5. CML, present on admission and stable. 6. Chronic lower back pain, present on admission and stable. 7. 25 lb weight loss over the last year, not clearly unintentional. Stable. 8. Hypertension, present on admission and stable. 9. Gastritis on EGD 10. BPH, present on admission and active. Plan of Treatment: Stable for discharge on Protonix daily, MiraLax daily, Dulcolax suppository as needed, I will start Flomax and recommended a urology appointment. Zoloft has been sent from his primary care doctor and he will start this as well. PCP within 1-2 weeks. Discharge Plan Discharge Plan Patient Disposition: Home Provider Discharge Comment: Stable for discharge home. Protonix daily. Also recommend MiraLax 1 dose daily. We will start Flomax for BPH. Discharge orders & Medications Prescriptions: New pantoprazole [Protonix] 40 mg tablet,delayed release (DR/EC) 40 mg PO DAILY Qty: 30 1RF tamsulosin [Flomax] 0.4 mg capsule 0.4 mg PO BEDTIME Qty: 30 3RF bisacodyl [Dulcolax (bisacodyl)] 10 mg suppository 10 mg [place] DAILY PRN (Reason: constipation) Qty: 12 0RF Continued multivitamin [Multiple Vitamins] 1 EACH tablet 1 tab PO QDAY Qty: 0 acetaminophen 325 MG tablet 650 mg PO Q6-8H PRN (Reason: Pain (Scale Score 4-6)) Qty: 0 Iclusig 15 MG tablet 15 mg PO DAILY Qty: 30 3RF pravastatin 40 mg tablet 40 mg PO DAILY lisinopril 20 mg tablet 20 mg PO BID levothyroxine [Synthroid] 100 mcg tablet 100 mcg PO DAILY amlodipine 10 mg tablet 10 mg PO DAILY Discontinued meloxicam 15 mg tablet 15 mg PO DAILY Follow up/Referrals: Jose Mederos MD [Primary Care Provider] - Easton Roberson MD [Physician] - (BPH) Discharge Health Status Multidrug resistant organism: No MDRO Diet/Activity/Treatments Diet: Diet as Tolerated Visit Report/Discharge Packet Instructions: DI for Upper GI Endoscopy, DI for Gastritis, DI for Constipation, Gastrointestinal Bleeding Stand Alone Forms: Patient Portal/API Discharge Data Primary Care Provider: Jose Mederos VTE Deep Vein Thrombosis/Pulmonary Embolism Present on Admission: No
--- NOTE | 2024-05-13 09:31 | CM.DPC ---
DCP Cont. Reviewed EMR and team rounds for status updates. Pt has improved, and has now been medically cleared for home discharge, his family will transport him home later this morning. No further DCP needs indicated at this time.
[2024-05-13 10:00] VITALS: PULSE 71; O2SAT 100
[2024-05-13 10:07] LABS: Folate > 20.0 ng/mL (2.76-20.0); Vitamin B12 425 pg/mL (239-931)
[2024-05-13] MEDS: TAMSULOSIN 0.4 MG CAPSULE PO (10:54)
--- NOTE | 2024-05-13 18:42 | PC.NURSE ---
Discharge: Flomax given, guerra d/c and pt was able to void x2. His is already in the process of making an appointment with Dr. Jerome. Discharge packet given and reviewed. Hand written scripts were given. Questions answered. Pt d/c to home via auto with spouse.
== END 2024-05-13 16:00 | disposition home or self-care (01) | DRG 378 ==
LOC: ED 12:15 → AC 12:46
PROVIDERS: Internal Medicine; Surgery; Admitting Provider Hospitalist; Emergency Provider Emergency Medicine; Family Provider Family Medicine; PCP Family Medicine; Referring Provider Emergency Medicine; Visit Provider Hospitalist
PROC: 0DJ08ZZ Inspection of Upper Intestinal Tract, Via Natural or Artificial Opening Endoscopic (ICD-10-PCS; CPT 43235; principal; 2024-05-12 15:15)
DX: K92.0 Hematemesis (principal); C92.10 Chronic myeloid leukemia, BCR/ABL-positive, not having achieved remission; E87.1 Hypo-osmolality and hyponatremia; D62 Acute posthemorrhagic anemia; K59.00 Constipation, unspecified; R55 Syncope and collapse; M54.50 Low back pain, unspecified; G89.29 Other chronic pain; I10 Essential (primary) hypertension; K29.70 Gastritis, unspecified, without bleeding; Z90.49 Acquired absence of other specified parts of digestive tract
CPT/HCPCS: 36415; 43239; 51798; 70450; 71045; 72125; 74177; 80048; 80053; 81001; 82550; 82607; 82746; 83540; 83550; 83605; 83690; 83735; 84145; 84484; 85014; 85018; 85025; 85045; 85610; 85730; 86850; 86900; 86901; 87040; 93005; 93010; 96374; 99232; 99285; C9113; J2704; Q9967

== ENCOUNTER 2024-12-03 13:58 | Emergency (ER) | payer MEDICARE, OTHER, SELFPAY ==
[2024-05-11 12:57] VITALS: BMI 23.5
[2024-12-03] VITALS (12 sets, daily range): BP systolic 129–144; BP diastolic 63–73; PULSE 74–85; RESP 12–18; TEMP 36.7–36.8; O2SAT 94–98
--- NOTE | 2024-12-03 14:06 | DI.RAD.S_ITS ---
PROCEDURE: XR CHEST 1V INDICATIONS: chest pain TECHNIQUE: One view of the chest was acquired. COMPARISON: [facility], CR, XR CHEST 1V, 05/11/2024, 8:34. FINDINGS: Surgical changes and devices: None. Lungs and pleura: There is pulmonary vascular congestion. Small infiltrate/atelectasis at right infrahilar region is likely present. No pleural effusions or pneumothorax. Mediastinum: Mediastinal contours appear normal. Heart size is enlarged. Bones and chest wall: No suspicious bony lesions. Overlying soft tissues appear unremarkable. IMPRESSION: Mild congestion with suggestion of right infrahilar small infiltrate/atelectasis. Clinical correlation and follow-up is recommended. No pleural effusion or pneumothorax. Dictated by: Boni Sepulveda M.D. on 12/03/2024 at 14:43 Approved by: Boni Sepulveda M.D. on 12/03/2024 at 14:44
--- NOTE | 2024-12-03 14:06 | EKG_ITS ---
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
[2024-12-03 14:27] LABS: Add Manual Diff / Slide Review NO; Basophils Absolute Auto 0 /uL (0-100); Basophils Percent Auto 0.3 % (0-2); Eosinophils Absolute Auto 100 /uL (0-450); Eosinophils Percent Auto 0.6 % (2-4); Hematocrit 30.5 % (41-53); Hemoglobin 10.3 g/dL (13.5-17.5); Lymphocytes Absolute Auto 500 /uL (1100-4500); Lymphocytes Percent Auto 3.3 % (25-40); Mean Corpuscular HGB Conc 33.8 % (30-36); Mean Corpuscular Volume 94.8 fL (80-100); Monocytes Absolute Auto 1500 /uL (0-900); Monocytes Percent Auto 9.4 % (3-14); Neutrophils Absolute Auto 14100 /uL (1500-7000); Neutrophils Percent Auto 86.4 % (50-75); Platelet Count 290 X10^3/uL (150-400); Red Blood Cell Count 3.22 X10^6/uL (4.5-5.9); Red Cell Distribution Width 14.9 % (11.6-14.8); White Blood Cell Count 16.3 X10^3/uL (4.5-11.0)
[2024-12-03 14:34] LABS: INR 1.5 (0.9-1.3); Prothrombin Time 16.8 SECONDS (9.4-12.5)
[2024-12-03 14:37] LABS: PTT Partial Thromboplastin Tim 37 SECONDS (25.1-36.5)
[2024-12-03 14:38] LABS: Alanine Aminotransferase 102 IU/L (<50); Albumin 3.8 g/dL (3.5-5.0); Albumin Globulin Ratio 1.1 (1.0-2.8); Alkaline Phosphatase 236 U/L (38-126); Aspartate Aminotransferase 100 IU/L (17-59); BUN Creatinine Ratio 26.6 (6-22); Blood Urea Nitrogen 33 mg/dL (9-20); Calcium 8.5 mg/dL (8.4-10.2); Carbon Dioxide 20 mmol/L (22-32); Chloride 106 mmol/L (98-107); Creatine Kinase 70 U/L (55-170); Estimated Glomerular Filt Rate 58 mL/min (>60); Globulin 3.5 g/dL (1.7-4.1); Glucose 122 mg/dL (80-110); HEMOLYSIS < 15 (0-50); Lipase 40 U/L (23-300); Magnesium 2.5 mg/dL (1.6-2.3); Sodium 135 mmol/L (137-145); Total Protein 7.3 g/dL (6.3-8.2)
[2024-12-03 14:50] LABS: NT-proBNP (BNP-Adult 18+) 1030 pg/mL (<450); Troponin I < 0.012 ng/mL (0.01-0.034)
[2024-12-03 15:07] LABS: Influenza A - CEPHEID Flu A NEGATIVE (NEGATIVE); Influenza B - CEPHEID Flu B NEGATIVE (NEGATIVE); Respiratory Syncytial Virus Negative (Negative)
[2024-12-03 15:10] LABS: COVID-19 CEPHEID 4-PLEX PCR Negative (Negative)
--- NOTE | 2024-12-03 15:26 | ED.CHESTPAIN ---
HPI - Chest Pain General Chief Complaint: Chest Pain Stated Complaint: chest and left shoulder pressure,tired Time Seen by Provider: 12/03/24 14:31 Source: patient and family Mode of arrival: Wheelchair History of Present Illness HPI narrative: Patient is an 79-year-old male. Has a history of CML. He was being followed by [facility] Funes. Has a history of high blood pressure, high cholesterol, enlarged prostate. Is here for evaluation of occasional chest discomfort and left shoulder discomfort and fatigue and decreased appetite that has been going on for at least the past 7-10 days. He describes the chest discomfort is intermittent. At the time of my exam he was having minimal discomfort. He denies shortness of breath. His baseline dysuria and frequency with this is normal for him. He denies abdominal pain. No fevers. His states that over the past several days he was had quite a bit of a decrease in appetite. Patient reports no abdominal pain or vomiting he just feels like he does not want to eat. He does report swelling to his left lower extremity that has been worsening over the past several weeks as well. He was never had a blood clot in the past. Not on anticoagulation. Related Data Home Medications Medication Instructions Recorded Confirmed multivitamin (Multiple Vitamins 1 tab PO QDAY #0 tabs 08/21/16 09/21/24 tablet) amlodipine 10 mg tablet 10 mg PO DAILY 05/11/24 09/21/24 levothyroxine 100 mcg tablet 100 mcg PO DAILY 05/11/24 09/21/24 (Synthroid) lisinopril 20 mg tablet 20 mg PO BID 05/11/24 09/21/24 pravastatin 40 mg tablet 40 mg PO DAILY 05/11/24 09/21/24 cholecalciferol (vitamin D3) 10 10 mcg PO DAILY 07/23/24 09/21/24 mcg (400 unit) capsule sertraline 50 mg tablet 50 mg PO DAILY 07/23/24 09/21/24 vitamin B comp and C no.3 15 mg-10 1 cap PO DAILY 07/23/24 09/21/24 mg-50 mg-5 mg-300 mg capsule (B Complex Plus Vitamin C) asciminib 100 mg tablet (Scemblix) 200 mg PO BID 09/21/24 09/21/24 Previous Rx's Medication Instructions Recorded tamsulosin 0.4 mg capsule (Flomax) 0.4 mg PO BEDTIME #30 caps 09/30/24 Allergies Allergy/AdvReac Type Severity Reaction Status Date / Time No Known Drug Allergies Allergy Verified 12/03/24 14:19 Review of Systems Review of Systems ROS Unobtainable: All systems reviewed & are unremarkable except as noted in HPI and below Patient History Medical History Overactive bladder History of constipation Secondhand smoke exposure Dysuria Dribbling of urine Nocturia more than twice per night Benign prostatic hyperplasia with lower urinary tract symptoms Hx of thyroid disease History of peptic ulcer disease Hx of chronic myeloid leukemia Hx of chronic arthritis History of BPH Surgical History (Updated 07/23/24 @ 09:33 by Ron Vu MD) Hx of vasectomy Hx of circumcision Hx of colectomy Hx of appendectomy Family History Father CVA (cerebral vascular accident) Hyperlipidemia Hypertension Brother Gout Social History marital status: number of children: 5 household members: spouse Smoking Status: Never smoker alcohol intake: current caffeine: No Type(s) of exercise: walking frequency: daily duration: 60-90 minutes/day Smoking Status: Never smoker alcohol intake frequency: holidays/special occasions only Exam Initial Vital Signs Initial Vital Signs: Vital Signs Pulse Rate 78 12/03/24 14:08 Const General: cooperative, comfortable and No ill appearing HENMT Head: normal to inspection and normocephalic Resp Effort & Inspection: normal respiratory effort Auscultation: clear to auscultation bilaterally Cardio Rate: regular rate Rhythm: regular rhythm GI Inspection: normal to inspection and non-distended Skin General: no rashes or lesions noted Neuro General: patient alert, patient awake, patient oriented x3 and moves all extremities Extrem Other: Left lower extremity swelling Course Orders Ordered: ED Orders 12/03/24 14:06 XR chest 1V Stat EKG-12 Lead Stat 12/03/24 14:15 Covid-19 + FLU A/B + RSV - PCR Stat 12/03/24 14:19 Complete Blood Count AUTO DIFF Stat Comprehensive Metabolic Panel Stat Lipase Stat Magnesium Stat NT-proBNP (BNP-Adult 18+) Stat PTT Partial Thromboplastin Ralf Stat Prothrombin Time INR Stat Troponin & CK Cardiac Panel Stat 12/03/24 15:26 CT angio chest PE protocol Stat 12/03/24 15:27 US periph venous low extrem lt Stat 12/03/24 17:10 Urinalysis and Microscopic Stat Discontinued Medications Aspirin (Aspirin 81 Mg Chew Tab) 324 mg PO NOW ONE Stop: 12/03/24 14:07 Last Admin: 12/03/24 16:48 Dose: Not Given Documented By: BS Vital Signs Vital signs: Vital Signs - 8 hr 12/03/24 14:08 12/03/24 14:09 12/03/24 14:09 Temperature Pulse Rate 78 79 Respiratory Rate 18 Blood Pressure 133/63 Pulse Oximetry 97 Oxygen Delivery Method 12/03/24 14:15 12/03/24 14:30 12/03/24 14:30 Temperature 98.1 F Pulse Rate 76 74 Respiratory Rate 13 12 Blood Pressure 133/63 143/64 H Pulse Oximetry 97 98 Oxygen Delivery Method Room Air 12/03/24 15:00 12/03/24 15:00 12/03/24 15:30 Temperature Pulse Rate 74 78 Respiratory Rate 17 14 Blood Pressure 137/63 Pulse Oximetry 97 97 Oxygen Delivery Method 12/03/24 15:30 12/03/24 16:09 12/03/24 16:30 Temperature Pulse Rate 82 81 Respiratory Rate 12 Blood Pressure 144/64 H Pulse Oximetry 95 97 Oxygen Delivery Method 12/03/24 17:00 12/03/24 17:30 Temperature Pulse Rate 83 85 Respiratory Rate 16 14 Blood Pressure Pulse Oximetry 94 96 Oxygen Delivery Method Room Air MDM - Chest Pain Medical Records Data Attestation: I reviewed the patient's medical records. Lab Data Attestation: I reviewed the patient's lab results. 12/03/24 14:19 12/03/24 14:19 Labs: Lab Results 12/03/24 12/03/24 12/03/24 Range/Units 14:15 14:19 16:26 WBC 16.3 H (4.5-11.0) X10^3/uL RBC 3.22 L (4.5-5.9) X10^6/uL Hgb 10.3 L (13.5-17.5) g/dL Hct 30.5 L (41-53) % MCV 94.8 (80-100) fL MCH 32.0 (26-34) PG MCHC 33.8 (30-36) % RDW 14.9 H (11.6-14.8) % Plt Count 290 (150-400) X10^3/uL Neut % (Auto) 86.4 H (50-75) % Lymph % (Auto) 3.3 L (25-40) % [place] % (Auto) 9.4 (3-14) % Eos % (Auto) 0.6 L (2-4) % Baso % (Auto) 0.3 (0-2) % Neut # (Auto) 84866 H (5217-6063) /uL Lymph # (Auto) 500 L (1738-7518) /uL [place] # (Auto) 1500 H (0-900) /uL Eos # (Auto) 100 (0-450) /uL Baso # (Auto) 0 (0-100) /uL PT 16.8 H (9.4-12.5) SECONDS INR 1.5 H (0.9-1.3) APTT 37 H (25.1-36.5) SECONDS Sodium 135 L (137-145) mmol/L Potassium 4.0 (3.4-5.1) mmol/L Chloride 106 (98-107) mmol/L Carbon Dioxide 20 L (22-32) mmol/L BUN 33 H (9-20) mg/dL Creatinine 1.24 (0.66-1.25) mg/dL Estimated GFR 58 L (>60) mL/min BUN/Creatinine Ratio 26.6 H (6-22) Glucose 122 H (80-110) mg/dL Calcium 8.5 (8.4-10.2) mg/dL Magnesium 2.5 H (1.6-2.3) mg/dL Total Bilirubin 1.0 (0.2-1.3) mg/dL AST 100 H (17-59) IU/L ALT 102 H (<50) IU/L Alkaline Phosphatase 236 H (38-126) U/L Total Creatine Kinase 70 (55-170) U/L Troponin I < 0.012 (0.01-0.034) ng/mL NT-Pro-B Natriuret Pep 1030 H (<450) pg/mL Total Protein 7.3 (6.3-8.2) g/dL Albumin 3.8 (3.5-5.0) g/dL Globulin 3.5 (1.7-4.1) g/dL Albumin/Globulin Ratio 1.1 (1.0-2.8) Lipase 40 (23-300) U/L Urine Color Yellow Urine Appearance Clear Urine pH 5.5 (4.5-8.0) Ur Specific [place] 1.015 (1.000-1.035) Urine Protein Trace H (Negative) Urine Glucose (UA) Negative (Negative) g/dL Urine Ketones Negative (NEGATIVE) Urine Occult Blood Negative (Negative) Urine Nitrate Negative (Negative) Urine Bilirubin Negative (NEGATIVE) Urine Urobilinogen 0.2 (0.2) E.U./dL Ur Leukocyte Esterase Negative (NEGATIVE) Urine RBC 0-1/hpf (0-5/HPF) Urine WBC 0-1/hpf (0-5/HPF) Ur Squamous Epith Cells 0-1 /hpf (0-5/HPF) Urine Bacteria Occasional (0-1) (None) Ur Culture Indicated? Cult not indicated Vol Urine Centrifuged 10ml (spun) SARS-CoV-2 (PCR) Negative (Negative) Influenza A (RT-PCR) Flu a negative (NEGATIVE) Influenza B (RT-PCR) Flu b negative (NEGATIVE) RSV (PCR) Negative (Negative) Imaging Data CT scan - chest: Radiologist's Impression: PROCEDURE: CT ANGIO CHEST PE PROTOCOL INDICATIONS: hx of CML, SOB, swelling of leg TECHNIQUE: After the administration of intravenous contrast, 2 mm thick sections acquired from the pulmonary apices to the posterior costophrenic angles. 3-dimensional maximum intensity projection (MIP) coronal and sagittal reformats were then acquired through the thorax. For radiation dose reduction, the following was used: automated exposure control, adjustment of mA and/or kV according to patient size. COMPARISON: [facility], US, US PERIPH VENOUS LOW EXTREM LT, 12/03/2024, 15:44. [facility], CR, XR CHEST 1V, 12/03/2024, 14:10. FINDINGS: Image quality: Diagnostic. Reduced inspiratory volume. Pulmonary arteries: Pulmonary arteries are normal in size, and demonstrate no intraluminal filling defects to suggest central pulmonary embolism. Lower Neck: No enlarged lymph nodes. Thyroid: No thyroid nodules which require sonographic follow up, per consensus guidelines. Axillae: No enlarged lymph nodes. Chest Wall: Unremarkable. Bones: Unremarkable. Lungs and Pleura: No pneumothorax or pleural effusions. No consolidation or suspicious nodules. Mild symmetric posterior lower lobe atelectasis. Heart: Heart size is normal. No pericardial effusion. Thoracic Vessels: No aortic aneurysm. Mediastinum and Prema: No enlarged lymph nodes. Esophagus: No wall thickening. No hiatal hernia. Upper Abdomen: Visualized upper abdomen solid organs and bowel loops appear normal. IMPRESSION: No pulmonary embolus. No acute cardiopulmonary process. Mild posterior lung base atelectasis associated with reduced inspiratory volume. Chest x-ray: Radiologist's Impression: PROCEDURE: XR CHEST 1V INDICATIONS: chest pain TECHNIQUE: One view of the chest was acquired. COMPARISON: [facility], CR, XR CHEST 1V, 05/11/2024, 8:34. FINDINGS: Surgical changes and devices: None. Lungs and pleura: There is pulmonary vascular congestion. Small infiltrate/atelectasis at right infrahilar region is likely present. No pleural effusions or pneumothorax. Mediastinum: Mediastinal contours appear normal. Heart size is enlarged. Bones and chest wall: No suspicious bony lesions. Overlying soft tissues appear unremarkable. IMPRESSION: Mild congestion with suggestion of right infrahilar small infiltrate/atelectasis. Clinical correlation and follow-up is recommended. No pleural effusion or pneumothorax. US - DVT: Radiologist's Impression: PROCEDURE: US PERIPH VENOUS LOW EXTREM LT INDICATIONS: eval for DVT TECHNIQUE: Real-time imaging, as well as color and pulse Doppler interrogation, were performed of the lower extremity deep veins from the inguinal ligament to the popliteal fossa, with documentation of the visualized calf veins. COMPARISON: None. FINDINGS: The common femoral, femoral, popliteal, and the visualized calf veins are normally compressible, and free of intraluminal thrombus. Color and pulse Doppler demonstrate normal phasic intraluminal flow. There is normal augmentation response to distal compression maneuver. IMPRESSION: No findings of lower extremity deep venous thrombosis. ECG Data Attestation: I personally reviewed and interpreted this ECG as follows: Interpretation: Sinus rhythm Ventricular rate is 79 Normal axis Normal QRS Nonspecific ST T wave changes MDM Narrative Medical decision making narrative: Patient's workup here in the emergency department is reassuring. Troponin is negative. Chest x-ray shows no signs of pneumonia. No chest discomfort here in the ER. Does have a leukocytosis but no specific source of infection found. He also has a history of CML. His symptoms have been present for the past 7-10 days. He was had a decline in activity and quite a bit of fatigue. Decrease in oral intake. He was not having any abdominal pain or vomiting. Had a discussion with him regarding his symptoms. Informed him that he does need to try to increase his oral intake of calories. Recommended that he talk with his primary doctor as he may need a referral to see physical therapy. He was given return precautions. Discharge Plan Departure Patient Disposition: Home Clinical Impression: Fatigue Instructions: DI for Fatigue Activity Restrictions/Additional Instructions: Recommend that you continue to take all of your medications as directed. Contact your primary care doctor for follow-up as you may need a referral to see physical therapy. Return to the emergency department for new or worsening symptoms. Prescriptions: No Action multivitamin [Multiple Vitamins] 1 EACH tablet 1 tab PO QDAY Qty: 0 tamsulosin [Flomax] 0.4 mg capsule 0.4 mg PO BEDTIME Qty: 30 3RF pravastatin 40 mg tablet 40 mg PO DAILY lisinopril 20 mg tablet 20 mg PO BID levothyroxine [Synthroid] 100 mcg tablet 100 mcg PO DAILY amlodipine 10 mg tablet 10 mg PO DAILY Scemblix 100 mg tablet 200 mg PO BID B Complex Plus Vitamin C [id number] mg capsule 1 cap PO DAILY Rx Instructions: give with food (meal/snack) cholecalciferol (vitamin D3) 10 mcg (400 unit) capsule 10 mcg PO DAILY sertraline 50 mg tablet 50 mg PO DAILY Referrals: Jose Mederos MD [Primary Care Provider] - Stand Alone Forms: Patient Portal/API/Survey
[2024-12-03 17:20] LABS: Appearance Urine UA CLEAR; Bilirubin Urine UA NEGATIVE (NEGATIVE); Color Urine UA YELLOW; Glucose Urine UA NEGATIVE (Negative); Ketones Urine UA NEGATIVE (NEGATIVE); Leukocyte Esterase Urine UA NEGATIVE (NEGATIVE); Nitrite Urine UA NEGATIVE (Negative); Occult Blood Urine UA NEGATIVE (Negative); Protein Urine UA TRACE (Negative); Specific Gravity Urine UA 1.015 (1.000-1.035); Urobilinogen Urine UA 0.2 E.U./dL (0.2); pH Urine UA 5.5 (4.5-8.0)
[2024-12-03 17:30] LABS: Bacteria Urine Occasional (0-1); Culture Indicated Urine Cult Not Indicated; RBC Urine 0-1/HPF (0-5/HPF); Squamous Epithelial Cell Urine 0-1 /HPF (0-5/HPF); Urine Volume 10mL (spun); WBC Urine 0-1/HPF (0-5/HPF)
== END 2024-12-03 17:50 | disposition home or self-care (01) ==
PROVIDERS: Emergency Provider Emergency Medicine; Family Provider Family Medicine; PCP Family Medicine
DX: R07.9 Chest pain, unspecified (principal); R53.83 Other fatigue; M25.512 Pain in left shoulder; R63.0 Anorexia; Z85.6 Personal history of leukemia
CPT/HCPCS: 0241U; 71045; 71275; 80053; 81001; 82550; 83690; 83735; 83880; 84484; 85025; 85610; 85730; 93005; 93971; 99284; Q9967

== ENCOUNTER 2025-01-26 11:20 | Emergency (ER) | payer MEDICARE, OTHER, SELFPAY ==
[2024-05-11 12:57] VITALS: BMI 23.5
[2025-01-26] VITALS (8 sets, daily range): BP systolic 130–168; BP diastolic 63–71; PULSE 66–85; RESP 12–26; TEMP 36.5; O2SAT 98–100; BMI 20.5
--- NOTE | 2025-01-26 11:26 | DI.RAD.S_ITS ---
PROCEDURE: XR CHEST 1V INDICATIONS: chest pain TECHNIQUE: One view of the chest was acquired. COMPARISON: [facility], CR, XR CHEST 1V, 12/03/2024, 14:10. FINDINGS: Surgical changes and devices: None. Lungs and pleura: Lungs are clear. No pleural effusions or pneumothorax. Mediastinum: Mediastinal contours appear normal. Heart size is enlarged. Bones and chest wall: No suspicious bony lesions. Overlying soft tissues appear unremarkable. IMPRESSION: No acute pulmonary process. Dictated by: Ny Calvin M.D. on 01/26/2025 at 12:16 Approved by: Ny Calvin M.D. on 01/26/2025 at 12:17
--- NOTE | 2025-01-26 11:26 | EKG_ITS ---
[address] [address] Test Date: 2025-01-26 Pat Name: Faheem Pichardo Department: [facility] Room: Gender: Male [employer]: EREN : 1945 Requested By: Order Number: [id number] Reading MD: Fabian Cheng Measurements Intervals [place] Rate: 77 P: 67 [place]: 212 QRS: 46 QRSD: 82 T: 62 QT: 396 QTc: 448 Interpretive Statements Sinus rhythm with 1st degree AV block Electronically Signed On 01-26-2025 17:30:00 PST by Fabian Cheng
--- NOTE | 2025-01-26 12:05 | DI.CT.S_ITS ---
PROCEDURE: CT HEAD/BRAIN WO CON INDICATIONS: near syncope TECHNIQUE: Noncontrast 4.5 mm thick angled axial sections acquired from the foramen magnum to the vertex, with coronal and sagittal reformats. For radiation dose reduction, the following was used: automated exposure control, adjustment of mA and/or kV according to patient size. COMPARISON: [facility], CT, CT HEAD/BRAIN WO CON, 05/11/2024, 10:12. FINDINGS: Image quality: Diagnostic CSF spaces: Basal cisterns are patent. Lateral ventricles are symmetric. Volume: Vascular calcifications. Periventricular white matter disease is commonly seen with chronic microangiopathy. Volume loss is present. These findings are moderate Brain: No intracranial hemorrhage. Lorenzo-white differentiation is grossly maintained. Craniofacial structures: No significant paranasal sinus opacity. IMPRESSION: No acute intracranial pathology. If there is high concern for parenchymal pathology, consider further evaluation with MRI. Dictated by: Segun Lowery M.D. on 01/26/2025 at 12:33 Approved by: Segun Lowery M.D. on 01/26/2025 at 12:34
[2025-01-26 12:17] LABS: Add Manual Diff / Slide Review NO; Basophils Absolute Auto 0 /uL (0-100); Basophils Percent Auto 0.5 % (0-2); Eosinophils Absolute Auto 200 /uL (0-450); Eosinophils Percent Auto 2.1 % (2-4); Hematocrit 29.8 % (41-53); Hemoglobin 10.2 g/dL (13.5-17.5); Lymphocytes Absolute Auto 700 /uL (1100-4500); Lymphocytes Percent Auto 9.5 % (25-40); Mean Corpuscular HGB Conc 34.3 % (30-36); Mean Corpuscular Hemoglobin 31.8 PG (26-34); Mean Corpuscular Volume 92.7 fL (80-100); Monocytes Absolute Auto 800 /uL (0-900); Monocytes Percent Auto 10.9 % (3-14); Neutrophils Absolute Auto 6000 /uL (1500-7000); Platelet Count 223 X10^3/uL (150-400); Red Blood Cell Count 3.21 X10^6/uL (4.5-5.9); Red Cell Distribution Width 19.2 % (11.6-14.8); White Blood Cell Count 7.7 X10^3/uL (4.5-11.0)
[2025-01-26 12:27] LABS: INR 1.1 (0.9-1.3); Prothrombin Time 11.9 SECONDS (9.4-12.5)
[2025-01-26 12:30] LABS: Alanine Aminotransferase 30 IU/L (<50); Albumin 3.8 g/dL (3.5-5.0); Albumin Globulin Ratio 1.3 (1.0-2.8); Alkaline Phosphatase 87 U/L (38-126); Aspartate Aminotransferase 39 IU/L (17-59); BUN Creatinine Ratio 20.7 (6-22); Bilirubin Total 0.5 mg/dL (0.2-1.3); Blood Urea Nitrogen 18 mg/dL (9-20); Calcium 8.8 mg/dL (8.4-10.2); Carbon Dioxide 20 mmol/L (22-32); Chloride 110 mmol/L (98-107); Creatine Kinase 51 U/L (55-170); Estimated Glomerular Filt Rate > 60 mL/min (>60); Glucose 111 mg/dL (80-110); HEMOLYSIS 35 (0-50); Lipase 39 U/L (23-300); Magnesium 1.8 mg/dL (1.6-2.3); PTT Partial Thromboplastin Tim 28 SECONDS (25.1-36.5); Potassium 4.3 mmol/L (3.4-5.1); Sodium 137 mmol/L (137-145); Total Protein 6.8 g/dL (6.3-8.2)
[2025-01-26 12:42] LABS: NT-proBNP (BNP-Adult 18+) 276 pg/mL (<450); Troponin I < 0.012 ng/mL (0.01-0.034)
--- NOTE | 2025-01-26 13:10 | ED.SYNCOPE ---
HPI - Syncope <Valarie Perez PA-C - Last Filed: 01/26/25 13:23> General Chief Complaint: Syncope Stated Complaint: Syncope Time Seen by Provider: 01/26/25 11:42 History of Present Illness HPI narrative: 79-year-old male with past medical history CML, hypothyroidism, PUD, gastritis, BPH presents to the ED status post an episode of syncope that occurred just prior to arrival. Patient was at the lab [facility] waiting for a fasting blood draw ordered by his oncologist. Patient states that he had to wait quite a bit, did not have a chair to sit down. Just as patient was 2nd in line, he felt sweaty and clammy and syncopized to the floor. Patient states he did not hit his head, however he did collapse to the floor and his fall was not broken. Patient was only out for a couple of seconds. Medics brought him into the ED for evaluation. Patient has been fasting since about 10:00 p.m. last night for the blood draw and states that he did not drink any water this morning either. It appears that he got some glucose by mouth when he came around. Related Data Home Medications Medication Instructions Recorded Confirmed multivitamin (Multiple Vitamins 1 tab PO QDAY #0 tabs 08/21/16 12/17/24 tablet) levothyroxine 100 mcg tablet 100 mcg PO DAILY 05/11/24 12/17/24 (Synthroid) lisinopril 20 mg tablet 20 mg PO BID 05/11/24 12/17/24 pravastatin 40 mg tablet 40 mg PO DAILY 05/11/24 12/17/24 cholecalciferol (vitamin D3) 10 10 mcg PO DAILY 07/23/24 12/17/24 mcg (400 unit) capsule sertraline 50 mg tablet 50 mg PO DAILY 07/23/24 12/17/24 vitamin B comp and C no.3 15 mg-10 1 cap PO DAILY 07/23/24 12/17/24 mg-50 mg-5 mg-300 mg capsule (B Complex Plus Vitamin C) asciminib 100 mg tablet (Scemblix) 200 mg PO BID 09/21/24 12/17/24 Previous Rx's Medication Instructions Recorded tamsulosin 0.4 mg capsule 0.4 mg PO ONCE PM #90 caps 01/27/25 Allergies Allergy/AdvReac Type Severity Reaction Status Date / Time No Known Drug Allergies Allergy Verified 12/17/24 10:38 Review of Systems <Valarie Perez PA-C - Last Filed: 01/26/25 13:23> Constitutional Constitutional: Denies chills, Denies fatigue, Denies fever(s), Denies frequent falls, Denies lethargy and Denies weakness Eyes Eyes: Denies change in vision, Denies eye discharge, Denies irritation and Denies loss of vision ENT Ears, Nose, Mouth, and Throat: Denies change in voice, Denies dizziness, Denies neck pain, Denies sore throat and Denies throat swelling Cardiovascular Cardiovascular: Denies chest pain, Reports syncope, Denies irregular heart rhythm, Denies lightheadedness, Denies palpitations, Denies dyspnea, Denies dyspnea on exertion and Denies orthopnea Respiratory Respiratory: Denies cough, Denies dyspnea, Denies dyspnea on exertion and Denies wheezing Gastrointestinal Gastrointestinal: Denies abdominal pain, Denies change in bowel habits, Denies diarrhea, Denies nausea and Denies vomiting Musculoskeletal Musculoskeletal: Denies neck pain and Denies numbness Integumentary/Breasts Skin/Breast: Denies pruritus, Denies erythema, Denies rash and Denies wounds Neurologic Neurologic: Denies behavioral changes, Denies confusion, Denies dizziness, Reports syncope, Denies frequent falls, Denies loss of vision, Denies numbness and Denies weakness Psychiatric Psychiatric: Denies anxiety, Denies behavioral changes, Denies confusion, Denies depression, Denies homicidal ideation and Denies suicidal ideation Endocrine Endocrine: Denies fatigue, Denies flushing and Denies palpitations Hematologic/Lymphatic Hematologic/Lymphatic: Denies easy bruising Allergic/Immunologic Allergic/Immunologic: Denies urticaria, Denies throat swelling and Denies wheezing Patient History <Valarie Perez PA-C - Last Filed: 01/26/25 13:23> Medical History Overactive bladder History of constipation Secondhand smoke exposure Dysuria Dribbling of urine Nocturia more than twice per night Benign prostatic hyperplasia with lower urinary tract symptoms Hx of thyroid disease History of peptic ulcer disease Hx of chronic myeloid leukemia Hx of chronic arthritis History of BPH Surgical History Hx of vasectomy Hx of circumcision Hx of colectomy Hx of appendectomy Family History Father CVA (cerebral vascular accident) Hyperlipidemia Hypertension Brother Gout Social History marital status: number of children: 5 household members: spouse Smoking Status: Never smoker alcohol intake: current caffeine: No Type(s) of exercise: walking frequency: daily duration: 60-90 minutes/day Smoking Status: Never smoker alcohol intake frequency: holidays/special occasions only Exam <Valarie Perez PA-C - Last Filed: 01/26/25 13:23> Narrative Exam Narrative: Const General:?cooperative, healthy appearing and comfortable [facility] Head:?normal to inspection Ears:?hearing grossly normal bilaterally Nose:?external nose normal Face and sinus:?normal facial exam and sinuses nontender Mouth:?oral mucosae normal Throat:?posterior oropharynx normal Eyes General:?appearance normal, both eyes and all related structures Neck Neck:?normal visual inspection and no lymphadenopathy noted Resp Effort & Inspection:?normal respiratory effort Auscultation:?clear to auscultation bilaterally Cardio Rate:?regular rate Rhythm:?regular rhythm Neuro General:?patient alert, patient awake and patient oriented x3 Initial Vital Signs Initial Vital Signs: Vital Signs Pulse Rate 84 01/26/25 11:28 Blood Pressure 130/63 01/26/25 11:28 Pulse Oximetry 99 01/26/25 11:28 <Elina Hamlin DO - Last Filed: 01/31/25 07:50> Initial Vital Signs Initial Vital Signs: Vital Signs Pulse Rate 84 01/26/25 11:28 Blood Pressure 130/63 01/26/25 11:28 Pulse Oximetry 99 01/26/25 11:28 Course <Valarie Perez PA-C - Last Filed: 01/26/25 13:23> Orders Ordered: Discontinued Medications Aspirin (Aspirin 81 Mg Chew Tab) 324 mg PO NOW ONE Stop: 01/26/25 11:27 Last Admin: 01/26/25 12:25 Dose: Not Given Documented By: Vital Signs Vital signs: Vital Signs - 8 hr 01/26/25 11:28 01/26/25 11:28 01/26/25 11:30 Temperature Pulse Rate 84 85 Respiratory Rate 26 H Blood Pressure 130/63 Pulse Oximetry 99 99 Oxygen Delivery Method 01/26/25 11:30 01/26/25 11:31 01/26/25 12:00 Temperature 97.7 F Pulse Rate 81 82 Respiratory Rate 16 22 Blood Pressure 141/68 H 130/63 Pulse Oximetry 100 100 Oxygen Delivery Method Room Air Room Air 01/26/25 12:00 01/26/25 12:23 01/26/25 12:23 Temperature Pulse Rate 75 Respiratory Rate 17 Blood Pressure 158/71 H 157/67 H Pulse Oximetry 99 Oxygen Delivery Method 01/26/25 12:30 01/26/25 12:30 01/26/25 13:00 Temperature Pulse Rate 71 72 Respiratory Rate 12 14 Blood Pressure 146/66 H Pulse Oximetry 99 98 Oxygen Delivery Method 01/26/25 13:01 01/26/25 13:01 Temperature Pulse Rate 68 66 Respiratory Rate 14 16 Blood Pressure 168/67 H Pulse Oximetry 99 98 Oxygen Delivery Method Room Air <Elina Hamlin, - Last Filed: 01/31/25 07:50> Orders Ordered: Discontinued Medications Aspirin (Aspirin 81 Mg Chew Tab) 324 mg PO NOW ONE Stop: 01/26/25 11:27 Last Admin: 01/26/25 12:25 Dose: Not Given Documented By: Vital Signs Vital signs: Vital Signs - 8 hr 01/26/25 11:28 01/26/25 11:28 01/26/25 11:30 Temperature Pulse Rate 84 85 Respiratory Rate 26 H Blood Pressure 130/63 Pulse Oximetry 99 99 Oxygen Delivery Method 01/26/25 11:30 01/26/25 11:31 01/26/25 12:00 Temperature 97.7 F Pulse Rate 81 82 Respiratory Rate 16 22 Blood Pressure 141/68 H 130/63 Pulse Oximetry 100 100 Oxygen Delivery Method Room Air Room Air 01/26/25 12:00 01/26/25 12:23 01/26/25 12:23 Temperature Pulse Rate 75 Respiratory Rate 17 Blood Pressure 158/71 H 157/67 H Pulse Oximetry 99 Oxygen Delivery Method 01/26/25 12:30 01/26/25 12:30 01/26/25 13:00 Temperature Pulse Rate 71 72 Respiratory Rate 12 14 Blood Pressure 146/66 H Pulse Oximetry 99 98 Oxygen Delivery Method 01/26/25 13:01 01/26/25 13:01 Temperature Pulse Rate 68 66 Respiratory Rate 14 16 Blood Pressure 168/67 H Pulse Oximetry 99 98 Oxygen Delivery Method Room Air MDM - Syncope <Valarie Perez PA-C - Last Filed: 01/26/25 13:23> Lab Data 01/26/25 12:04 01/26/25 12:04 Labs: Lab Results 01/26/25 Range/Units 12:04 WBC 7.7 (4.5-11.0) X10^3/uL RBC 3.21 L (4.5-5.9) X10^6/uL Hgb 10.2 L (13.5-17.5) g/dL Hct 29.8 L (41-53) % MCV 92.7 (80-100) fL MCH 31.8 (26-34) PG MCHC 34.3 (30-36) % RDW 19.2 H (11.6-14.8) % Plt Count 223 (150-400) X10^3/uL Neut % (Auto) 77.0 H (50-75) % Lymph % (Auto) 9.5 L (25-40) % [place] % (Auto) 10.9 (3-14) % Eos % (Auto) 2.1 (2-4) % Baso % (Auto) 0.5 (0-2) % Neut # (Auto) 6000 (3581-5595) /uL Lymph # (Auto) 700 L (6644-2707) /uL [place] # (Auto) 800 (0-900) /uL Eos # (Auto) 200 (0-450) /uL Baso # (Auto) 0 (0-100) /uL PT 11.9 (9.4-12.5) SECONDS INR 1.1 (0.9-1.3) APTT 28 (25.1-36.5) SECONDS Sodium 137 (137-145) mmol/L Potassium 4.3 (3.4-5.1) mmol/L Chloride 110 H (98-107) mmol/L Carbon Dioxide 20 L (22-32) mmol/L BUN 18 (9-20) mg/dL Creatinine 0.87 (0.66-1.25) mg/dL Estimated GFR > 60 (>60) mL/min BUN/Creatinine Ratio 20.7 (6-22) Glucose 111 H (80-110) mg/dL Calcium 8.8 (8.4-10.2) mg/dL Magnesium 1.8 (1.6-2.3) mg/dL Total Bilirubin 0.5 (0.2-1.3) mg/dL AST 39 (17-59) IU/L ALT 30 (<50) IU/L Alkaline Phosphatase 87 (38-126) U/L Total Creatine Kinase 51 L (55-170) U/L Troponin I < 0.012 (0.01-0.034) ng/mL NT-Pro-B Natriuret Pep 276 (<450) pg/mL Total Protein 6.8 (6.3-8.2) g/dL Albumin 3.8 (3.5-5.0) g/dL Globulin 3.0 (1.7-4.1) g/dL Albumin/Globulin Ratio 1.3 (1.0-2.8) Lipase 39 (23-300) U/L MDM Narrative Medical decision making narrative: 79-year-old male with past medical history CML, hypothyroidism, PUD, gastritis, BPH presents to the ED status post an episode of syncope that occurred just prior to arrival. Patient's symptoms are most consistent with a vasovagal syncope, dehydration. Will workup to rule out cardiopulmonary etiology. Chest x-ray without acute findings. EKG is normal sinus rhythm with first-degree AV block, no acute ST-T changes. CT head without acute changes. Labs are within normal limits. H&H is stable. Troponin within normal limits. BNP within normal limits. Patient feels well in the ED, has been given some lunch and water. Recommend patient stay well hydrated, follow-up with his oncologist and PCP as soon as possible. ED return precautions were discussed with patient. Patient verbalized understanding. Medical records reviewed: Yes <Elina Hamlin, - Last Filed: 01/31/25 07:50> Lab Data Labs: Lab Results 01/26/25 Range/Units 12:04 WBC 7.7 (4.5-11.0) X10^3/uL RBC 3.21 L (4.5-5.9) X10^6/uL Hgb 10.2 L (13.5-17.5) g/dL Hct 29.8 L (41-53) % MCV 92.7 (80-100) fL MCH 31.8 (26-34) PG MCHC 34.3 (30-36) % RDW 19.2 H (11.6-14.8) % Plt Count 223 (150-400) X10^3/uL Neut % (Auto) 77.0 H (50-75) % Lymph % (Auto) 9.5 L (25-40) % [place] % (Auto) 10.9 (3-14) % Eos % (Auto) 2.1 (2-4) % Baso % (Auto) 0.5 (0-2) % Neut # (Auto) 6000 (5090-6633) /uL Lymph # (Auto) 700 L (6880-1341) /uL [place] # (Auto) 800 (0-900) /uL Eos # (Auto) 200 (0-450) /uL Baso # (Auto) 0 (0-100) /uL PT 11.9 (9.4-12.5) SECONDS INR 1.1 (0.9-1.3) APTT 28 (25.1-36.5) SECONDS Sodium 137 (137-145) mmol/L Potassium 4.3 (3.4-5.1) mmol/L Chloride 110 H (98-107) mmol/L Carbon Dioxide 20 L (22-32) mmol/L BUN 18 (9-20) mg/dL Creatinine 0.87 (0.66-1.25) mg/dL Estimated GFR > 60 (>60) mL/min BUN/Creatinine Ratio 20.7 (6-22) Glucose 111 H (80-110) mg/dL Calcium 8.8 (8.4-10.2) mg/dL Magnesium 1.8 (1.6-2.3) mg/dL Total Bilirubin 0.5 (0.2-1.3) mg/dL AST 39 (17-59) IU/L ALT 30 (<50) IU/L Alkaline Phosphatase 87 (38-126) U/L Total Creatine Kinase 51 L (55-170) U/L Troponin I < 0.012 (0.01-0.034) ng/mL NT-Pro-B Natriuret Pep 276 (<450) pg/mL Total Protein 6.8 (6.3-8.2) g/dL Albumin 3.8 (3.5-5.0) g/dL Globulin 3.0 (1.7-4.1) g/dL Albumin/Globulin Ratio 1.3 (1.0-2.8) Lipase 39 (23-300) U/L ECG Data Attestation: I personally reviewed and interpreted this ECG as follows: Interpretation: Sinus rhythm first-degree AV block rate of 77 [place] 212 QRS 82 QTC of 448, no acute ST elevation depression noted. Discharge Plan Departure Patient Disposition: Home Clinical Impression: Syncope Qualifiers: Syncope type: unspecified Qualified Code(s): R55 - Syncope and collapse Instructions: DI for Syncope in Adults (Fainting) Activity Restrictions/Additional Instructions: Were evaluated in the ED today for fainting earlier today. Your chest x-ray, EKG, head CT, labs were normal. You likely fainted today due to the fasting and dehydration. Please continue to stay well hydrated. Please follow-up with your PCP and oncologist as soon as possible. Return to the ED if you have worsening symptoms. Prescriptions: No Action multivitamin [Multiple Vitamins] 1 EACH tablet 1 tab PO QDAY Qty: 0 tamsulosin 0.4 mg capsule 0.4 mg PO ONCE PM Qty: 90 3RF pravastatin 40 mg tablet 40 mg PO DAILY lisinopril 20 mg tablet 20 mg PO BID levothyroxine [Synthroid] 100 mcg tablet 100 mcg PO DAILY Scemblix 100 mg tablet 200 mg PO BID B Complex Plus Vitamin C 48-91-48-5-300 mg capsule 1 cap PO DAILY Rx Instructions: give with food (meal/snack) cholecalciferol (vitamin D3) 10 mcg (400 unit) capsule 10 mcg PO DAILY sertraline 50 mg tablet 50 mg PO DAILY Referrals: Jose Mederos MD [Primary Care Provider] - Stand Alone Forms: Patient Portal/API/Survey ED Sign-out <Elina Hamlin DO - Last Filed: 01/31/25 07:50> Cosign ED Attending Cosignature Attestation: I was immediately available in the department for consultation.
== END 2025-01-26 13:47 | disposition home or self-care (01) ==
PROVIDERS: Emergency Medicine; Emergency Provider Student in an Organized Health Care Education/Training Program; Family Provider Family Medicine; PCP Family Medicine
DX: R55 Syncope and collapse (principal); R07.9 Chest pain, unspecified; I44.0 Atrioventricular block, first degree
CPT/HCPCS: 70450; 71045; 80053; 82550; 83690; 83735; 83880; 84484; 85025; 85610; 85730; 93005; 99283; 99284

== ENCOUNTER → 2025-09-13 13:50 | Outpatient (CLI) | payer MEDICARE, OTHER, SELFPAY ==
[2024-05-11 12:57] VITALS: BMI 23.5
[2025-09-13 14:46] LABS: Add Manual Diff / Slide Review NO; Hematocrit 35.6 % (41-53); Hemoglobin 12.5 g/dL (13.5-17.5); Lymphocytes Absolute Auto 1400 /uL (1100-4500); Mean Corpuscular HGB Conc 35.2 % (30-36); Mean Corpuscular Hemoglobin 34.1 PG (26-34); Mean Corpuscular Volume 97.0 fL (80-100); Platelet Count 221 X10^3/uL (150-400)
[2025-09-13 15:48] LABS: TSH w/ Reflex to FT4 1.25 uIU/mL (0.47-4.68); Vitamin D 25 Hydroxy (D3) 51.5 ng/mL (30.0-100.0)
[2025-09-13 16:04] LABS: Vitamin B12 Reflex MMA if <400 438 pg/mL (239-931)
[2025-09-13 16:23] LABS: Folate > 20.0 ng/mL (2.76-20.0)
== END ==
PROVIDERS: Urology; PCP Family Medicine; Referring Provider Family Medicine; Visit Provider Family Medicine
DX: Z12.5 Encounter for screening for malignant neoplasm of prostate (principal); R41.89 Other symptoms and signs involving cognitive functions and awareness; E03.9 Hypothyroidism, unspecified; I10 Essential (primary) hypertension; Z87.898 Personal history of other specified conditions
CPT/HCPCS: 36415; 82306; 82607; 82746; 84443; 85025; G0103

== ENCOUNTER → 2025-11-17 15:29 | Outpatient (CLI) | payer MEDICARE, OTHER, SELFPAY ==
[2024-05-11 12:57] VITALS: BMI 23.5
--- NOTE | 2025-11-17 15:29 | DI.MRI.S_ITS ---
PROCEDURE: MR HEAD/BRAIN WO CON INDICATIONS: memory changes;cognitive impairment TECHNIQUE: Noncontrast axial T1 spin echo, axial T2 fast spin echo, sagittal and axial FLAIR, coronal T2 fast spin echo, axial gradient echo, axial diffusion and ADC through the brain. COMPARISON: None. FINDINGS: CSF Spaces: Basal cisterns are patent. No extra-axial fluid collections. Ventricles are normal in size and shape. Brain: No intracranial masses or hemorrhage. Lorenzo/white matter interface is normal. Brainstem appears normal. Diffusion-weighted sequence is unremarkable without evidence of acute infarct. Normal intravascular flow voids are present. Skull and face: Calvarium has normal marrow signal. Orbits appear normal. Bilateral intraocular lens replacements noted. Sinuses: Sinuses and mastoids are clear. IMPRESSION: Age-appropriate atrophy and chronic ischemic change without acute infarct, hemorrhage or mass lesion Approved by: Saturnino Castro M.D. on 11/17/2025 at 16:15
== END ==
PROVIDERS: PCP Family Medicine; Referring Provider Family Medicine; Visit Provider Family Medicine
DX: R41.89 Other symptoms and signs involving cognitive functions and awareness (principal); R41.3 Other amnesia; Z96.1 Presence of intraocular lens
CPT/HCPCS: 70551